=== PATIENT | male | born 1960 | race Caucasian/White ===

== ENCOUNTER 2016-08-05 15:52 | Observation (INO) | payer MEDICARE, OTHER ==
--- NOTE | 2016-08-05 16:43 | ED ---
General Adult HPI - General Chief complaint: Chest Pain Stated complaint: chest pain Time Seen by Provider: 08/05/16 16:23 Source: patient, EMS, RN notes reviewed, old records reviewed Mode of arrival: EMS Limitations: no limitations - History of Present Illness Initial comments: This is a 55-year-old male with a ER for evaluation today. This patient presents for evaluation of chest pain. Patient had the chest pain that began in the shower, help with nitro. Patient has history of heart disease, patient does occasionally take nitro for chest pain. Patient got in his shower today around 1:00 and passed out after having an episode of chest pain with shortness of breath and mild diaphoresis. Patient states the pain did resolve prior to ambulance arriving and he did take a nitro and aspirin. Patient still states he remains without chest pain or shortness of breath, did have a stress test within the last year prior to heart surgery. - Related Data Home Medications Medication Instructions Recorded Confirmed Clopidogrel Bisulfate [Plavix] 75 mg PO DAILY 08/05/16 08/05/16 Escitalopram [Lexapro] 20 mg PO DAILY 08/05/16 08/05/16 Isosorbide Dinitrate 30 mg PO DAILY 08/05/16 08/05/16 QUEtiapine [SEROquel] 50 mg PO DAILY 08/05/16 08/05/16 Ramipril [Altace] 5 mg PO DAILY 08/05/16 08/05/16 Ranolazine [Ranexa] 1,000 mg PO BID 08/05/16 08/05/16 glipiZIDE [Glucotrol] 10 mg PO DAILY 08/05/16 08/05/16 metFORMIN HCL 1,000 mg PO BID 08/05/16 08/05/16 sitaGLIPtin [Januvia] 100 mg PO DAILY 08/05/16 08/05/16 Allergies Allergy/AdvReac Type Severity Reaction Status Date / Time phenytoin [From Dilantin] Allergy SWEATING, Verified 08/05/16 16:16 HOT, METALLIC TASTE, TINGLING Review of Systems ROS Statement: Those systems with pertinent positive or pertinent negative responses have been documented in the HPI. ROS Other: All systems not noted in ROS Statement are negative. Past Medical History Past Medical History: Diabetes Mellitus, Hypertension Additional Past Medical History / Comment(s): 2 stents placed, History of Any Multi-Drug Resistant Organisms: None Reported Additional Past Surgical History / Comment(s): 2 stents placed, varicose vein removal Past Psychological History: Anxiety, Depression Smoking Status: Former smoker Past Alcohol Use History: Occasional Past Drug Use History: Marijuana General Exam Limitations: no limitations General appearance: alert, in no apparent distress Head exam: Present: atraumatic, normocephalic, normal inspection Eye exam: Present: normal appearance, PERRL, EOMI. Absent: scleral icterus, conjunctival injection, periorbital swelling ENT exam: Present: normal exam, mucous membranes moist Neck exam: Present: normal inspection. Absent: tenderness, meningismus, lymphadenopathy Respiratory exam: Present: normal lung sounds bilaterally. Absent: respiratory distress, wheezes, rales, rhonchi, stridor Cardiovascular Exam: Present: regular rate, normal rhythm, normal heart sounds. Absent: systolic murmur, diastolic murmur, rubs, gallop, clicks GI/Abdominal exam: Present: soft, normal bowel sounds. Absent: distended, tenderness, guarding, rebound, rigid Extremities exam: Present: normal inspection, full ROM, normal capillary refill. Absent: tenderness, pedal edema, joint swelling, calf tenderness Back exam: Present: normal inspection Neurological exam: Present: alert, oriented X3, CN II-XII intact Psychiatric exam: Present: normal affect, normal mood Skin exam: Present: warm, dry, intact, normal color. Absent: rash Course Vital Signs 08/05/16 08/05/16 15:58 17:30 Pulse Rate 87 Pulse Rate [ 98 Right Radial] Respiratory 18 Rate Blood Pressure 109/65 O2 Sat by Pulse 99 Oximetry - Reevaluation(s) Reevaluation #1: 08/05/16 18:15 patient is still with chest pain, cruz was helped with nitro Reevaluation #2: 08/05/16 18:15 patient admits to severe depression EKG Findings - EKG Comments: EKG Findings:: EKG shows sinus tachycardia rate 103, CA 150, QRS 80, QTC 453 Medical Decision Making - Lab Data Result diagrams: 08/05/16 16:01 08/05/16 16:01 Lab Results 08/05/16 08/05/16 08/05/16 Range/Units 16:01 16:01 16:01 WBC 5.7 (3.8-10.6) k/uL RBC 4.63 (4.30-5.90) m/uL Hgb 14.7 (13.0-17.5) gm/dL Hct 41.7 (39.0-53.0) % MCV 90.1 (80.0-100.0) fL MCH 31.7 (25.0-35.0) pg MCHC 35.2 (31.0-37.0) g/dL RDW 12.4 (11.5-15.5) % Plt Count 175 (150-450) k/uL Neutrophils % 72 % Lymphocytes % 17 % Monocytes % 6 % Eosinophils % 2 % Basophils % 1 % Neutrophils # 4.1 (1.3-7.7) k/uL Lymphocytes # 1.0 (1.0-4.8) k/uL Monocytes # 0.3 (0-1.0) k/uL Eosinophils # 0.1 (0-0.7) k/uL Basophils # 0.1 (0-0.2) k/uL PT (9.0-12.0) sec INR (<1.1) APTT (22.0-30.0) sec D-Dimer (<0.60) mg/L FEU Sodium 136 L (137-145) mmol/L Potassium 4.8 (3.5-5.1) mmol/L Chloride 101 (98-107) mmol/L Carbon Dioxide 21 L (22-30) mmol/L Anion Gap 14 mmol/L BUN 19 (9-20) mg/dL Creatinine 1.04 (0.66-1.25) mg/dL Est GFR (MDRD) Af Amer >60 (>60 ml/min/1.73 sqM) Est GFR (MDRD) Non-Af >60 (>60 ml/min/1.73 sqM) Glucose 322 H (74-99) mg/dL Calcium 9.4 (8.4-10.2) mg/dL Magnesium 1.2 L (1.6-2.3) mg/dL Total Bilirubin 1.7 H (0.2-1.3) mg/dL AST 26 (17-59) U/L ALT 24 (21-72) U/L Alkaline Phosphatase 22 L (38-126) U/L Total Creatine Kinase 58 (55-170) U/L CK-MB (CK-2) 0.8 (0.0-2.4) ng/mL CK-MB (CK-2) Rel Index 1.4 Troponin I <0.012 (0.000-0.034) ng/mL NT-Pro-B Natriuret Pep pg/mL Total Protein 7.3 (6.3-8.2) g/dL Albumin 4.3 (3.5-5.0) g/dL Lipase 183 (23-300) U/L 08/05/16 08/05/16 Range/Units 16:01 16:01 WBC (3.8-10.6) k/uL RBC (4.30-5.90) m/uL Hgb (13.0-17.5) gm/dL Hct (39.0-53.0) % MCV (80.0-100.0) fL MCH (25.0-35.0) pg MCHC (31.0-37.0) g/dL RDW (11.5-15.5) % Plt Count (150-450) k/uL Neutrophils % % Lymphocytes % % Monocytes % % Eosinophils % % Basophils % % Neutrophils # (1.3-7.7) k/uL Lymphocytes # (1.0-4.8) k/uL Monocytes # (0-1.0) k/uL Eosinophils # (0-0.7) k/uL Basophils # (0-0.2) k/uL PT 11.1 (9.0-12.0) sec INR 1.1 (<1.1) APTT 20.7 L (22.0-30.0) sec D-Dimer 0.53 (<0.60) mg/L FEU Sodium (137-145) mmol/L Potassium (3.5-5.1) mmol/L Chloride (98-107) mmol/L Carbon Dioxide (22-30) mmol/L Anion Gap mmol/L BUN (9-20) mg/dL Creatinine (0.66-1.25) mg/dL Est GFR (MDRD) Af Amer (>60 ml/min/1.73 sqM) Est GFR (MDRD) Non-Af (>60 ml/min/1.73 sqM) Glucose (74-99) mg/dL Calcium (8.4-10.2) mg/dL Magnesium (1.6-2.3) mg/dL Total Bilirubin (0.2-1.3) mg/dL AST (17-59) U/L ALT (21-72) U/L Alkaline Phosphatase (38-126) U/L Total Creatine Kinase (55-170) U/L CK-MB (CK-2) (0.0-2.4) ng/mL CK-MB (CK-2) Rel Index Troponin I (0.000-0.034) ng/mL NT-Pro-B Natriuret Pep 61 pg/mL Total Protein (6.3-8.2) g/dL Albumin (3.5-5.0) g/dL Lipase (23-300) U/L Critical Care Time Critical Care Time: Yes Total Critical Care Time: 31 Disposition Clinical Impression: Chest pain, Depression Disposition: ADMITTED IP TO THIS [facility] Condition: Fair Referrals: Jenna Cuellar DO [Primary Care Provider] - 1-2 days
[2016-08-05 16:49] LABS: Basophils # (A) 0.1 k/uL (0-0.2); Basophils % (A) 1 %; CH 31.3; CHCM 34.9; Eosinophils # (A) 0.1 k/uL (0-0.7); Eosinophils % (A) 2 %; HCT 41.7 % (39.0-53.0); HDW 2.72; HGB 14.7 gm/dL (13.0-17.5); Luc % (Auto) 2; Lymphocytes % (A) 17 %; MCH 31.7 pg (25.0-35.0); MCHC 35.2 g/dL (31.0-37.0); MCV 90.1 fL (80.0-100.0); Mean Platelet Volume 7.9; Monocytes # (A) 0.3 k/uL (0-1.0); Monocytes % (A) 6 %; Neutrophils # (A) 4.1 k/uL (1.3-7.7); Neutrophils % (A) 72 %; RBC 4.63 m/uL (4.30-5.90); RDW 12.4 % (11.5-15.5); WBC 5.7 k/uL (3.8-10.6); WBC (Perox) 5.69
--- NOTE | 2016-08-05 16:55 | XR ---
EXAMINATION TYPE: XR chest 2V DATE OF EXAM: 08/05/2016 4:48 PM COMPARISON: NONE HISTORY: Chest pain today. TECHNIQUE: Frontal and lateral views of the chest are obtained. FINDINGS: There is no focal air space opacity, pleural effusion, or pneumothorax seen. The cardiac silhouette size is within normal limits with atherosclerotic change in the aortic knob. The osseous structures are intact. IMPRESSION: No acute process.
[2016-08-05 16:59] LABS: INR 1.1 (<1.1); Prothrombin Time 11.1 sec (9.0-12.0)
[2016-08-05 17:00] LABS: ALT 24 U/L (21-72); AST 26 U/L (17-59); Alkaline Phosphatase 22 U/L (38-126); Anion Gap 14 mmol/L; Blood Urea Nitrogen 19 mg/dL (9-20); Calcium 9.4 mg/dL (8.4-10.2); Carbon Dioxide 21 mmol/L (22-30); Chloride 101 mmol/L (98-107); Glucose 322 mg/dL (74-99); Magnesium 1.2 mg/dL (1.6-2.3); Non-African American GFR(MDRD) >60 (>60 ml/min/1.73 sqM); Potassium 4.8 mmol/L (3.5-5.1); Sodium 136 mmol/L (137-145); Total Bilirubin 1.7 mg/dL (0.2-1.3); Total Protein 7.3 g/dL (6.3-8.2)
[2016-08-05 17:12] LABS: Partial Thromboplastin Time 20.7 sec (22.0-30.0)
[2016-08-05 17:30] LABS: Creatine Kinase 58 U/L (55-170)
[2016-08-05 17:43] LABS: Creatine Kinase MB 0.8 ng/mL (0.0-2.4); Troponin I <0.012 ng/mL (0.000-0.034)
[2016-08-05] MEDS ORDERED: HEPARIN SODIUM,PORCINE 5,000 UNIT/ML 1 ML VIAL IV PRN (18:13)
[2016-08-05] MEDS ORDERED: ASPIRIN 81 MG CHEW PO STA (18:13)
[2016-08-05] MEDS ORDERED: NITROGLYCERIN SL TABS 0.4 MG TAB SUBLINGUAL PRN (18:13)
[2016-08-05] MEDS ORDERED: MORPHINE SULFATE 4 MG/ML SYRINGE IV PRN (18:13)
[2016-08-05] MEDS ORDERED: HEPARIN SODIUM,PORCINE 5,000 UNIT/ML 1 ML VIAL IV ONE (18:13)
[2016-08-05] MEDS ORDERED: MAGNESIUM OXIDE 400 MG TAB PO STA (18:15)
[2016-08-05] MEDS ORDERED: HEPARIN SODIUM,PORCINE/D5W PMX 25,000 UNIT in DEXTROSE/WATER 1 500ML.BAG IV SCH (18:15)
[2016-08-05] MEDS: SODIUM CHLORIDE 0.9% 1,000 ML IV SCH (18:37)
[2016-08-05] MEDS: MAGNESIUM SULFATE-D5W PMX 1 GM in DEXTROSE/WATER 1 100ML.BAG IVPB SCH ×4 (18:38→22:54)
[2016-08-05 19:59] LABS: Creatine Kinase MB 0.9 ng/mL (0.0-2.4); Troponin I 0.024 ng/mL (0.000-0.034)
[2016-08-06 00:52] VITALS: BMI 27.1
[2016-08-06 00:57] LABS: Glucose,Whole Blood 163 mg/dL (75-99)
[2016-08-06 01:29] LABS: Creatine Kinase MB 1.2 ng/mL (0.0-2.4); Troponin I 0.028 ng/mL (0.000-0.034)
[2016-08-06] MEDS: SODIUM CHLORIDE 0.9% 1,000 ML IV SCH ×2 (05:47→19:00)
[2016-08-06 06:09] VITALS: RESP 16
[2016-08-06 08:17] VITALS: TEMP 98
[2016-08-06] MEDS ORDERED: ASPIRIN 325 MG TAB PO SCH (09:00)
[2016-08-06] MEDS ORDERED: ATORVASTATIN 80 MG TAB PO SCH (09:00)
[2016-08-06] MEDS ORDERED: METOPROLOL TARTRATE 25 MG TAB PO SCH (09:00)
--- NOTE | 2016-08-06 09:46 | CONS ---
DATE OF CONSULTATION: This is a 55-year-old gentleman who is very sketchy in terms of his history, how he provides it, but I spent a lot of time talking to this patient and understanding exactly what happened. Apparently he has CAD and apparently in 2004 and 2006 or so he had stenting performed. Obtuse marginal stent was a bare metal stent, in a third obtuse marginal and diagonal he had another stent performed and this was also in 2005 apparently and this was a drug-eluting stent. They were placed in [facility] and [facility]. About 2 weeks ago he had a stress test with his merchandising assistant Dr. Rojas in [place] and he was told it was normal. He has underlying ADHD and some depression. Yesterday, he took a shower, came out and then he had a very sharp pain in the chest almost like vice that lasted a few seconds, took his breath away and this lasted for a few minutes. He felt very uncomfortable and then the pain resolved. His troponins are normal. He is resting comfortably. Denies any chest pain, but he also has some underlying depression. He has type 2 diabetes, hypertension, hyperlipidemia, and CAD, which is diffuse, CAD and has been on multiple medications including ranolazine. At the time of my evaluation, he is resting comfortably without symptoms. His troponin levels are unremarkable. PAST MEDICAL HISTORY: 1. CAD with multivessel PCI. 2. Diabetes. 3. Hypertension. 4. ADHD. 5. Depression and anxiety. Medications at home include Seroquel, glipizide, Januvia, Ismo, Plavix, Altace, metformin, Ranexa. ALLERGIES: DILANTIN. On examination, blood pressure is 130/70, pulse rate 68 per minute, regular. HEENT: Unremarkable. Fundus was not examined by me. Neck is supple. No JVD. I do not hear a carotid bruit. There is no thyromegaly. Heart exam reveals S1 and S2 heard normally without a rub, murmur or gallop. Lungs are clear. ABDOMEN: Soft, nontender. Lower extremities reveal normal pulses. No edema. Central nervous system is normal. EKG revealed sinus mechanism. No acute changes. IMPRESSION: 1. Atypical chest pain in a patient with a recent negative stress test, but has coronary artery disease, which is apparently diffuse coronary artery disease. 2. Hypertension. 3. Type 2 diabetes mellitus. 4. History of hyperlipidemia. 5. History of depression and anxiety. RECOMMENDATIONS: I am recommending that we will obtain the stress test that was performed 2 weeks ago. I am recommending that we discontinue IV heparin, increase activity, and he can be discharged and follow up with his merchandising assistant. I will add a beta paulino to his regimen and I have added metoprolol tartrate 25 mg b.i.d. and I did discuss this and explained to the patient. Thank you very much for the consult.
[2016-08-06 11:05] LABS: Magnesium 1.9 mg/dL (1.6-2.3)
[2016-08-06 12:22] LABS: Glucose,Whole Blood 218 mg/dL (75-99)
[2016-08-06 13:25] LABS: Hemoglobin A1C 9.2 % (4.2-6.1)
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
[2016-08-06 16:34] VITALS: BP 169/85; PULSE 78
== END 2016-08-06 17:12 ==
LOC: EC 15:52 → 3OBS 18:14
PROVIDERS: ADMIT Hospitalist; ATTEND Hospitalist
DX: I25.110 Atherosclerotic heart disease of native coronary artery with unstable angina pectoris (principal); I10 Essential (primary) hypertension; E11.65 Type 2 diabetes mellitus with hyperglycemia; E78.5 Hyperlipidemia, unspecified; F41.9 Anxiety disorder, unspecified; F32.9 Major depressive disorder, single episode, unspecified; Z79.899 Other long term (current) drug therapy; Z79.02 Long term (current) use of antithrombotics/antiplatelets; Z79.84 Long term (current) use of oral hypoglycemic drugs; Z88.8 Allergy status to other drugs, medicaments and biological substances; Z87.891 Personal history of nicotine dependence; Z95.5 Presence of coronary angioplasty implant and graft
CPT/HCPCS: 96366 ×2; 96367; 96376; 96368; 96365; 99291; 36415; 93005; 85379; 83880; 80061; 80053; 83036; 82550 ×2; 82553 ×2; 83690; 83735 ×2; 84484 ×2; 85025; 85049; 85610; 85730 ×2; 71020; G0378 ×2; J1644 ×3; J3475

== ENCOUNTER 2016-08-06 15:56 | Inpatient (IN) | payer MEDICARE, MEDICAID ==
[2016-08-06] MEDS ORDERED: MAGNESIUM HYDROXIDE 2,400 MG/10 ML CUP PO PRN (16:03)
[2016-08-06] MEDS ORDERED: ZIPRASIDONE 20 MG VIAL IM PRN (16:03)
[2016-08-06 17:31] LABS: Glucose,Whole Blood 295 mg/dL (75-99)
[2016-08-06 19:57] LABS: Glucose,Whole Blood 293 mg/dL (75-99)
[2016-08-06] MEDS: metFORMIN 500 MG TAB PO SCH (20:05)
[2016-08-06] MEDS: RANOLAZINE 500 MG TAB.ER.12H PO SCH (20:05)
[2016-08-06] MEDS: METOPROLOL TARTRATE 25 MG TAB PO SCH (20:05)
[2016-08-06] MEDS ORDERED: INSULIN LISPRO (humaLOG) 300 UNIT/3 ML VIAL SQ ONE (20:16)
[2016-08-06] MEDS: INSULIN LISPRO (humaLOG) 300 UNIT/3 ML VIAL SQ SCH (20:21)
[2016-08-06] MEDS: LORazepam 1 MG TAB PO PRN (22:19)
[2016-08-07 06:12] LABS: Glucose,Whole Blood 223 mg/dL (75-99)
[2016-08-07] MEDS: INSULIN LISPRO (humaLOG) 300 UNIT/3 ML VIAL SQ SCH ×4 (07:57→20:23)
[2016-08-07] MEDS: ISOSORBIDE MONONITRATE ER 30 MG TAB.ER.24H PO SCH (08:00)
[2016-08-07] MEDS: CLOPIDOGREL 75 MG TAB PO SCH (08:00)
[2016-08-07] MEDS: ESCITALOPRAM 20 MG TAB PO SCH (08:00)
[2016-08-07] MEDS: ATORVASTATIN 40 MG TAB PO SCH (08:00)
[2016-08-07] MEDS: METOPROLOL TARTRATE 25 MG TAB PO SCH ×2 (08:01→20:23)
[2016-08-07] MEDS: metFORMIN 500 MG TAB PO SCH ×2 (08:01→20:22)
[2016-08-07] MEDS: RANOLAZINE 500 MG TAB.ER.12H PO SCH ×2 (08:01→20:22)
[2016-08-07] MEDS: QUEtiapine 50 MG TAB PO SCH (08:01)
[2016-08-07] MEDS ORDERED: LISINOPRIL 20 MG TAB PO SCH (09:00)
[2016-08-07] MEDS ORDERED: LINAGLIPTIN 5 MG TABLET PO SCH (09:00)
[2016-08-07] MEDS ORDERED: glipiZIDE 10 MG TAB PO SCH (09:00)
[2016-08-07 12:24] LABS: Glucose,Whole Blood 216 mg/dL (75-99)
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
[2016-08-07] MEDS: INSULIN DETEMIR 100 UNIT/ML 10 ML VIAL SQ SCH (14:31)
[2016-08-07 17:15] LABS: Glucose,Whole Blood 293 mg/dL (75-99)
[2016-08-07] MEDS ORDERED: LISINOPRIL 20 MG TAB PO ONE (19:30)
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
[2016-08-07 20:02] LABS: Glucose,Whole Blood 310 mg/dL (75-99)
[2016-08-07] MEDS: LORazepam 1 MG TAB PO PRN (22:37)
[2016-08-07] MEDS: ACETAMINOPHEN TAB 325 MG TAB PO PRN (23:53)
[2016-08-08 06:22] LABS: Glucose,Whole Blood 269 mg/dL (75-99)
[2016-08-08] MEDS: INSULIN DETEMIR 100 UNIT/ML 10 ML VIAL SQ SCH (07:52)
[2016-08-08] MEDS: INSULIN LISPRO (humaLOG) 300 UNIT/3 ML VIAL SQ SCH ×5 (07:53→21:41)
[2016-08-08] MEDS: LISINOPRIL 20 MG TAB PO SCH (08:47)
[2016-08-08] MEDS: ESCITALOPRAM 20 MG TAB PO SCH (08:47)
[2016-08-08] MEDS: CLOPIDOGREL 75 MG TAB PO SCH (08:48)
[2016-08-08] MEDS: ATORVASTATIN 40 MG TAB PO SCH (08:48)
[2016-08-08] MEDS: QUEtiapine 50 MG TAB PO SCH (08:48)
[2016-08-08] MEDS: metFORMIN 500 MG TAB PO SCH ×2 (08:49→21:44)
[2016-08-08] MEDS: RANOLAZINE 500 MG TAB.ER.12H PO SCH ×2 (08:49→21:44)
[2016-08-08] MEDS: ISOSORBIDE MONONITRATE ER 30 MG TAB.ER.24H PO SCH (08:49)
[2016-08-08] MEDS: METOPROLOL TARTRATE 25 MG TAB PO SCH ×2 (08:50→21:44)
--- NOTE | 2016-08-08 12:29 | P.PN ---
Progress Note - Text Interval history: Patient is seen in cross coverage today for Dr. Sawyer. He seems to relay that his mood is doing a little better today. Says he slept 8 hours last night. He talks about long history of ADHD which has had an impact on his functioning. He does make reference to having requested a different doctor. He does not see anybody currently as an outpatient it sounds. He makes reference to having been transferred from the medical floor. Mental status exam: He is alert and cooperative with the interview. His affect overall is restricted. His mood he seems to describe is a little better. He denies any thoughts of harm to self or others. He denies any hallucinations. He is not showing any evidence of active psychosis. There is no agitation. Plan: We'll maintain current psychotropic medications which are Lexapro and Seroquel. We'll monitor for any medication side effects. We'll continue to cover this patient for Dr. Sawyer through the weekend.
[2016-08-08 12:31] LABS: Glucose,Whole Blood 277 mg/dL (75-99)
[2016-08-08] MEDS ORDERED: INSULIN DETEMIR 100 UNIT/ML 10 ML VIAL SQ SCH (15:06)
[2016-08-08 17:40] LABS: Glucose,Whole Blood 191 mg/dL (75-99)
[2016-08-08 20:11] LABS: Glucose,Whole Blood 258 mg/dL (75-99)
[2016-08-08] MEDS: LORazepam 1 MG TAB PO PRN (22:06)
[2016-08-08] MEDS: MAG HYDROX/AL HYDROX/SIMETH 30 ML CUP PO PRN (22:42)
[2016-08-09 06:58] LABS: Glucose,Whole Blood 236 mg/dL (75-99)
[2016-08-09] MEDS: INSULIN LISPRO (humaLOG) 300 UNIT/3 ML VIAL SQ SCH ×7 (08:10→21:03)
[2016-08-09] MEDS: QUEtiapine 50 MG TAB PO SCH (08:13)
[2016-08-09] MEDS: CLOPIDOGREL 75 MG TAB PO SCH (08:13)
[2016-08-09] MEDS: metFORMIN 500 MG TAB PO SCH ×2 (08:13→21:06)
[2016-08-09] MEDS: ATORVASTATIN 40 MG TAB PO SCH (08:13)
[2016-08-09] MEDS: METOPROLOL TARTRATE 25 MG TAB PO SCH ×2 (08:13→19:48)
[2016-08-09] MEDS: ESCITALOPRAM 20 MG TAB PO SCH (08:13)
[2016-08-09] MEDS: LISINOPRIL 20 MG TAB PO SCH (08:13)
[2016-08-09] MEDS: RANOLAZINE 500 MG TAB.ER.12H PO SCH ×2 (08:13→19:48)
[2016-08-09] MEDS: ISOSORBIDE MONONITRATE ER 30 MG TAB.ER.24H PO SCH (08:13)
--- NOTE | 2016-08-09 11:39 | P.PN ---
Progress Note - Text Interval history: Patient is seen in cross coverage for Dr. Sawyer. He relates that his sleep was a little interrupted last night. He does not seem to voice any adverse psychotropic medication side effects. He makes reference to feeling like he needs something for sleep. We discussed that as Seroquel as currently ordered as daytime and we discussed moving this to bedtime. Mental status exam: He is alert and cooperative with the interview. Speech is fluent, not rapid or pressured. He describes his mood as "a little down, but level." He denies any thoughts of harm to self or others. He does not show any active evidence of psychosis or agitation. Plan: We'll change Seroquel scheduling to bedtime. We'll continue to monitor his mood and for any medication side effects. Dr. Sawyer to resume care this patient starting tomorrow.
[2016-08-09 12:21] LABS: Glucose,Whole Blood 275 mg/dL (75-99)
[2016-08-09 17:35] LABS: Glucose,Whole Blood 321 mg/dL (75-99)
[2016-08-09] MEDS ORDERED: INSULIN DETEMIR 100 UNIT/ML 10 ML VIAL SQ STA (18:29)
[2016-08-09] MEDS ORDERED: INSULIN LISPRO (humaLOG) 300 UNIT/3 ML VIAL SQ STA (18:34)
[2016-08-09 19:53] LABS: Glucose,Whole Blood 320 mg/dL (75-99)
[2016-08-09] MEDS: LORazepam 1 MG TAB PO PRN (22:27)
[2016-08-10 06:22] LABS: Glucose,Whole Blood 160 mg/dL (75-99)
[2016-08-10] MEDS: INSULIN DETEMIR 100 UNIT/ML 10 ML VIAL SQ SCH (07:56)
[2016-08-10] MEDS: INSULIN LISPRO (humaLOG) 300 UNIT/3 ML VIAL SQ SCH ×7 (08:00→20:22)
[2016-08-10] MEDS: LISINOPRIL 20 MG TAB PO SCH (08:04)
[2016-08-10] MEDS: metFORMIN 500 MG TAB PO SCH ×2 (08:04→20:23)
[2016-08-10] MEDS: CLOPIDOGREL 75 MG TAB PO SCH (08:04)
[2016-08-10] MEDS: ISOSORBIDE MONONITRATE ER 30 MG TAB.ER.24H PO SCH (08:04)
[2016-08-10] MEDS: ESCITALOPRAM 20 MG TAB PO SCH (08:04)
[2016-08-10] MEDS: ATORVASTATIN 40 MG TAB PO SCH (08:04)
[2016-08-10] MEDS: RANOLAZINE 500 MG TAB.ER.12H PO SCH ×2 (08:05→20:23)
[2016-08-10] MEDS: METOPROLOL TARTRATE 25 MG TAB PO SCH ×2 (08:05→20:23)
[2016-08-10 12:23] LABS: Glucose,Whole Blood 216 mg/dL (75-99)
--- NOTE | 2016-08-10 12:23 | PN ---
DATE OF SERVICE: 08/10/2016 CHIEF COMPLAINT : The patient was admitted due to depression, feelings of hopelessness and inability to function. He asserted that he has ADHD as a primary problem. He has a significant history of use of marijuana and alcohol. INTERVAL HISTORY: Patient has been doing fair. He seemed to have a quiet course over the weekend. Today, he says that said nothing changed through the weekend. He was unclear as to whether he talked to the covering doctor for the weekend in regards to his concerns about treatment. He has a focus on getting the treatment for ADHD, in spite of the fact that he presents with significant depression. He seemed to be somewhat confused about things. At one point, he said that he thought he talked to me over the weekend. He has focus on talking with Dr. Lam on Wednesday. I reviewed some medication options for him. We discussed the possibility of using Tofranil as an antidepressant, which also has usefulness for ADHD. 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 I discussed his Seroquel. I discussed the issue that his blood sugars run high and that at this point he is on a relatively low dose of Seroquel that by his presentation is not showing effectiveness. We talked about either titrating up on Seroquel to see if he gets benefit from the medicine or getting him off it altogether to reduce risks relating to his elevated blood sugars. He declined to do either. I also discussed alternatives to Seroquel which might be effective at augmenting treatment for mood disorder. Patient had made indications to the staff on the weekend that at home he would not use insulin in spite of the fact that his blood sugars are running high with his being on metformin. Patient reports that he uses magnesium and chromium which he does on his own and says that they have efficacy for helping his diabetes. He sees Dr. Cuellar, but notes that Dr. Cuellar has had not prescribed those supplements. The patient slept fair. He says that he chronically does not sleep well and did not sleep well on the weekend either. His mood is down. He is quite reserved in his manner. He has not had change in his general health. I had ordered a urinalysis and urine drug screen though it is not clear that a collection was made. MENTAL STATUS: Patient was dressed in hospital garb. His street clothes were being washed. He had poor eye contact. Psychomotor activity was slow. Speech was monotone. He answered questions with brief responses. His thoughts were clear. His affect was flat. Mood depressed. He had a disgruntled manner. ASSESSMENT: I will continue the current diagnosis and treatment plan. I will continue psychotropic medications the same. Patient asserts that he will review his concerns with Dr. Lam with the primary concern that he does not trust this doctor and prefers to see another. I reviewed with him options for outpatient followup though his only interest at this point is revealing concerns with Dr. Lam. MARVIN
[2016-08-10 16:30] LABS: Appearance,Urine Clear (Clear); Bilirubin,Urine Negative (Negative); Glucose,Urine (UA) 4+ (Negative); Ketones,Urine Negative (Negative); Leukocyte Esterase,Urine Negative (Negative); Nitrite,Urine Negative (Negative); Protein,Urine Negative (Negative); UA Billing (MACRO vs. MICRO) CHEM; Urobilinogen,Urine <2.0 mg/dL (<2.0)
[2016-08-10 16:49] LABS: Glucose,Whole Blood 237 mg/dL (75-99)
[2016-08-10] MEDS: MAG HYDROX/AL HYDROX/SIMETH 30 ML CUP PO PRN (17:51)
[2016-08-10 19:49] LABS: Glucose,Whole Blood 264 mg/dL (75-99)
[2016-08-10] MEDS ORDERED: QUEtiapine 50 MG TAB PO SCH (21:00)
[2016-08-10] MEDS: LORazepam 1 MG TAB PO PRN (21:34)
[2016-08-11 07:01] LABS: Glucose,Whole Blood 170 mg/dL (75-99)
[2016-08-11] MEDS: INSULIN DETEMIR 100 UNIT/ML 10 ML VIAL SQ SCH (08:48)
[2016-08-11] MEDS: INSULIN LISPRO (humaLOG) 300 UNIT/3 ML VIAL SQ SCH ×7 (08:49→20:23)
[2016-08-11] MEDS: CLOPIDOGREL 75 MG TAB PO SCH (08:51)
[2016-08-11] MEDS: ATORVASTATIN 40 MG TAB PO SCH (08:51)
[2016-08-11] MEDS: METOPROLOL TARTRATE 25 MG TAB PO SCH ×2 (08:52→20:20)
[2016-08-11] MEDS: metFORMIN 500 MG TAB PO SCH ×2 (08:52→20:19)
[2016-08-11] MEDS: LISINOPRIL 20 MG TAB PO SCH (08:52)
[2016-08-11] MEDS: ESCITALOPRAM 20 MG TAB PO SCH (08:52)
[2016-08-11] MEDS: ISOSORBIDE MONONITRATE ER 30 MG TAB.ER.24H PO SCH (08:52)
[2016-08-11] MEDS: RANOLAZINE 500 MG TAB.ER.12H PO SCH ×2 (08:53→20:20)
[2016-08-11] MEDS ORDERED: IMIPRAMINE 25 MG TAB PO STA (11:31)
[2016-08-11 12:09] LABS: Glucose,Whole Blood 324 mg/dL (75-99)
--- NOTE | 2016-08-11 14:28 | PN ---
DATE OF SERVICE: 08/11/2016 CHIEF COMPLAINT: The patient was admitted due to depression, feelings of hopelessness and inability to function. He asserted that he has ADHD as a primary problem. He had a significant history of use of marijuana and alcohol. INTERVAL HISTORY: Patient has been doing fair. He continues to be withdrawn. He does not attend groups. He will interact a little with others. He is quite hesitant to engage in social interactions. He does have a surgery coming up on for hernia repair and is hopeful that he can be discharged. He noted today that his Plavix needs to be stopped prior to surgery, so will be discontinued today. He says he is willing to try alternative medications as he acknowledges that his current medication regimen has not worked for him for mood or other problems. He continues to have some problems sleeping though says that Ativan helps with that. He is comfortable with the idea of stopping both Lexapro and Seroquel, which he had been on previously. We reviewed issues with starting Tofranil which he agreed to. He has not had change in his general health. He tolerates his psychotropic medications. MENTAL STATUS: Patient sat with fair eye contact. Psychomotor activity was slow. Speech was monotone. He answered questions with direct responses. His thoughts were clear. He seemed a little calmer today and a little less defensive and anxious about his situation. He had some blunting of affect, but less than previous days. His mood was dysphoric. He was somewhat distressed. ASSESSMENT: I will continue the current diagnosis and general treatment plan. I will discontinue Lexapro and Seroquel. I will start Tofranil, given that he is hopeful to be discharged tomorrow to prepare for surgery. I will try to titrate up his Tofranil on a somewhat assertive schedule. He will take 25 mg this afternoon. If he does not have any problems with it, will give him another 25 mg at bedtime. If he tolerates that, we could look at possibly discharging him on 75 mg a day. I will get an EKG tomorrow afternoon to assess, particularly for any acute TC prolongation. We met with the neonatal social worker to review followup plans. The patient does say that he would be willing to be seen by another primary care physician at he has not been comfortable with the doctor he has been seeing. We discussed that his medication could likely be managed by primary care physician or psychiatrist, neonatal social worker will be looking to set up followup plans in his area where he lives. We will aim to discharge the patient tomorrow.
[2016-08-11] MEDS: MAG HYDROX/AL HYDROX/SIMETH 30 ML CUP PO PRN (17:04)
[2016-08-11 17:07] LABS: Glucose,Whole Blood 181 mg/dL (75-99)
[2016-08-11 20:11] LABS: Glucose,Whole Blood 147 mg/dL (75-99)
[2016-08-11] MEDS ORDERED: IMIPRAMINE 25 MG TAB PO SCH (21:00)
[2016-08-11] MEDS: LORazepam 1 MG TAB PO SCH (21:41)
[2016-08-11] MEDS: ACETAMINOPHEN TAB 325 MG TAB PO PRN (23:11)
[2016-08-12 06:41] LABS: Glucose,Whole Blood 104 mg/dL (75-99)
[2016-08-12] MEDS: INSULIN LISPRO (humaLOG) 300 UNIT/3 ML VIAL SQ SCH ×8 (08:02→20:56)
[2016-08-12] MEDS: INSULIN DETEMIR 100 UNIT/ML 10 ML VIAL SQ SCH (08:03)
[2016-08-12] MEDS: ATORVASTATIN 40 MG TAB PO SCH (08:07)
[2016-08-12] MEDS: ISOSORBIDE MONONITRATE ER 30 MG TAB.ER.24H PO SCH (08:07)
[2016-08-12] MEDS: LISINOPRIL 20 MG TAB PO SCH (08:07)
[2016-08-12] MEDS: metFORMIN 500 MG TAB PO SCH ×2 (08:07→20:58)
[2016-08-12] MEDS: RANOLAZINE 500 MG TAB.ER.12H PO SCH ×2 (08:07→20:59)
[2016-08-12] MEDS: METOPROLOL TARTRATE 25 MG TAB PO SCH ×2 (08:07→20:58)
[2016-08-12 09:33] LABS: Glucose,Whole Blood 198 mg/dL (75-99)
[2016-08-12 12:08] LABS: Glucose,Whole Blood 151 mg/dL (75-99)
[2016-08-12] MEDS: ACETAMINOPHEN TAB 325 MG TAB PO PRN (16:22)
[2016-08-12 17:03] LABS: Glucose,Whole Blood 158 mg/dL (75-99)
--- NOTE | 2016-08-12 18:17 | PN ---
DATE OF SERVICE: 08/12/2016 CHIEF COMPLAINT: The patient was admitted due to depression, feelings of hopelessness and inability to function. He asserted that he has ADHD as a primary problem. He has a history of use of marijuana and alcohol. INTERVAL HISTORY: Patient has been doing fair. He had a quiet evening last night. He slept fair. Today he has been up and about. It is noteworthy that yesterday and the day before he started attending groups, though he clearly had reactions of being distressed in groups. In some of the groups, he would walk out in an angry manner. Today he has done better. He has attended groups and, though he does not participate a lot, he has been calmer and a little more tolerant of the social situation. He says that he is aggravated today because the surgery he had set up for tomorrow for hernia repair was canceled. He said that somehow information had gotten to his surgeon that he was admitted due to a heart attack for this admission, which is not the case. He was upset in part because he had to do a lot of work to get prepared for the surgery and it took him 3 months to get the appointment. He has not had any problems with the start of Tofranil. He is willing to go up on the medication. He has not had change in his general health. He tolerates his psychotropic medications. MENTAL STATUS: Patient had fair eye contact. Psychomotor activity was slow. Speech was monotone. He answered questions with brief responses. His thoughts were clear. He was spontaneous. He was not really interactive. His affect was flat, mood depressed. He was significantly distressed. ASSESSMENT: I will continue the current diagnosis and treatment plan. Tonight the patient will go up to 75 mg on Tofranil; tomorrow will go up to 100 mg on Tofranil. I offered the patient the option of starting a second medication to help augment his antidepressant. He declined to do that, saying he is on too much medicine already and he wants to keep his treatment simplified, which was appropriate. We discussed the time length for response to the medication and that he needed to understand it may take a few weeks or more to begin seeing some response with the initiation of Tofranil. It is noted that I wrote a note to his physician, Dr. Sammy M.D., and faxed the note with the cardiology consult to clarify issues relating to this admission and that there are no cardiac issues that would interfere with surgery. I advised the patient to contact the doctor's office later today to see what options are available for his surgery. We will continue to focus on stabilization and discharge planning.
[2016-08-12 19:56] LABS: Glucose,Whole Blood 241 mg/dL (75-99)
[2016-08-12] MEDS: LORazepam 1 MG TAB PO SCH (20:58)
[2016-08-12] MEDS ORDERED: IMIPRAMINE 25 MG TAB PO SCH ×2 (21:00)
[2016-08-13 06:05] LABS: Glucose,Whole Blood 143 mg/dL (75-99)
[2016-08-13] MEDS: INSULIN LISPRO (humaLOG) 300 UNIT/3 ML VIAL SQ SCH ×7 (07:48→21:31)
[2016-08-13] MEDS: INSULIN DETEMIR 100 UNIT/ML 10 ML VIAL SQ SCH (07:52)
[2016-08-13] MEDS: metFORMIN 500 MG TAB PO SCH ×2 (08:45→21:29)
[2016-08-13] MEDS: ISOSORBIDE MONONITRATE ER 30 MG TAB.ER.24H PO SCH (08:45)
[2016-08-13] MEDS: METOPROLOL TARTRATE 25 MG TAB PO SCH ×2 (08:45→21:29)
[2016-08-13] MEDS: RANOLAZINE 500 MG TAB.ER.12H PO SCH ×2 (08:45→21:29)
[2016-08-13] MEDS: ATORVASTATIN 40 MG TAB PO SCH (08:45)
[2016-08-13] MEDS: LISINOPRIL 20 MG TAB PO SCH (08:45)
[2016-08-13 12:58] LABS: Glucose,Whole Blood 247 mg/dL (75-99)
--- NOTE | 2016-08-13 15:51 | PN ---
DATE OF SERVICE: 08/13/2016 CHIEF COMPLAINT: The patient was admitted due to depression, feelings of hopelessness and inability to function. He asserted that he has ADHD as a primary problem. He has a history of use of marijuana and alcohol. INTERVAL HISTORY: Patient has been doing fair. He had a quiet evening last night. He said he slept better than he has been. He notes that he went to bed about 10:30 and woke up about 1, which has been his routine. After about an hour and a half he got back to sleep and slept through the night. Today he has been up and about. He attends groups. It is noted that he has been staying through the full groups. Sometimes he may have some behavior that is inappropriate, though for the most part he appears to be managing better in the groups than he has been. He says that his mood is somewhat improved. His only complaint today is some pain in his feet from wearing the slippers that are required. He has a better outlook. He made contact with Dr. Christianson's office and has tentative arrangement for surgery a week from today. He is hopeful that he can be discharged by Wednesday so that he can follow through with that. He says that he thinks his mood has been improving. He has not had problems with the start of Tofranil. He has not had change in his general health. MENTAL STATUS: Patient sat without restlessness. He had good eye contact. Psychomotor activity was a little slow. Speech was somewhat monotone. He answered questions with direct responses. His thoughts were clear. He was somewhat more spontaneous than he has been. His affect was a little blunted. His mood was quiet though not significantly down or depressed. He did not appear to be distressed. ASSESSMENT: I will continue the current diagnosis and treatment plan. I will increase Tofranil up to 100 mg a day at bedtime. We will continue to focus on stabilization and discharge planning. We will aim to discharge the patient on Wednesday. I will order an EKG for Wednesday to assess for any QTc prolongation, which is a potential side effect of Tofranil, particularly in combination with Ranexa.
[2016-08-13] MEDS: MAG HYDROX/AL HYDROX/SIMETH 30 ML CUP PO PRN (16:20)
[2016-08-13 17:46] LABS: Glucose,Whole Blood 173 mg/dL (75-99)
[2016-08-13 19:56] LABS: Glucose,Whole Blood 193 mg/dL (75-99)
[2016-08-13] MEDS: IMIPRAMINE 25 MG TAB PO SCH (21:28)
[2016-08-13] MEDS: LORazepam 1 MG TAB PO SCH (21:29)
[2016-08-14 07:06] LABS: Glucose,Whole Blood 177 mg/dL (75-99)
[2016-08-14] MEDS: ISOSORBIDE MONONITRATE ER 30 MG TAB.ER.24H PO SCH (08:30)
[2016-08-14] MEDS: ATORVASTATIN 40 MG TAB PO SCH (08:30)
[2016-08-14] MEDS: metFORMIN 500 MG TAB PO SCH ×2 (08:30→21:01)
[2016-08-14] MEDS: RANOLAZINE 500 MG TAB.ER.12H PO SCH ×2 (08:31→21:01)
[2016-08-14] MEDS: METOPROLOL TARTRATE 25 MG TAB PO SCH ×2 (08:31→21:01)
[2016-08-14] MEDS: INSULIN LISPRO (humaLOG) 300 UNIT/3 ML VIAL SQ SCH ×7 (08:31→21:07)
[2016-08-14] MEDS: INSULIN DETEMIR 100 UNIT/ML 10 ML VIAL SQ SCH (08:32)
[2016-08-14] MEDS: LISINOPRIL 20 MG TAB PO SCH (09:29)
--- NOTE | 2016-08-14 11:22 | PN ---
DATE OF SERVICE: 08/14/2016 CHIEF COMPLAINT: Patient was admitted due to depression, feelings of hopelessness and inability to function. He asserted that he has ADHD as a primary problem. He has a history of use of marijuana and alcohol. INTERVAL HISTORY: Patient has been doing fair. He had a quiet evening last night. He said he did not sleep too well. He was up until about 2 in the morning. Once he got to sleep, he woke a few times. He feels tired this morning. He has been attending groups. He has difficulty in the groups relating to others, though it is noted that he is able to stay the whole time in groups. His comments have been less negative when he does speak. He gets out around the unit. He will interact some with others. Today he says that he is feeling a little strange in his body. He says he cannot really define, though feels a little "off" physically, though he cannot put it in words. He has been making plans towards discharge. 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 He has been able to research some possible opportunities for that. He also is looking towards moving to a community that would offer more for him socially. He feels quite isolated where he is at. He also says that a lot of people around him drink significantly, which is not a good situation for him. He continues to be somewhat down in his mood, though he does seem to be making small steps forward. He has not had change in his general health. He tolerates his psychotropic medications. MENTAL STATUS: Patient had fair eye contact. Psychomotor activity was slow. Speech was monotone. He answered questions with brief responses. His thoughts were clear. He was somewhat spontaneous and interactive. His affect was blunted. His mood reserved. He did not seem to be significantly distressed. ASSESSMENT: I will continue current diagnosis and treatment plan. Will continue psychotropic medications the same. I suspect some of the physical feelings he is having may relate to initiation of Tofranil. Will continue him on 100 mg a day. I reviewed options towards discharge. At this point, I would aim to discharge the patient over the next few days.
[2016-08-14 13:06] LABS: Glucose,Whole Blood 192 mg/dL (75-99)
[2016-08-14 17:26] LABS: Glucose,Whole Blood 143 mg/dL (75-99)
[2016-08-14 20:10] LABS: Glucose,Whole Blood 195 mg/dL (75-99)
[2016-08-14] MEDS: IMIPRAMINE 25 MG TAB PO SCH (21:00)
[2016-08-14] MEDS: LORazepam 1 MG TAB PO SCH (21:01)
[2016-08-14] MEDS: MAG HYDROX/AL HYDROX/SIMETH 30 ML CUP PO PRN (23:28)
[2016-08-15 06:42] VITALS: TEMP 97.8
[2016-08-15 07:18] LABS: Glucose,Whole Blood 140 mg/dL (75-99)
[2016-08-15] MEDS: ATORVASTATIN 40 MG TAB PO SCH (08:02)
[2016-08-15] MEDS: ISOSORBIDE MONONITRATE ER 30 MG TAB.ER.24H PO SCH (08:02)
[2016-08-15] MEDS: LISINOPRIL 20 MG TAB PO SCH (08:03)
[2016-08-15] MEDS: metFORMIN 500 MG TAB PO SCH ×2 (08:03→20:56)
[2016-08-15] MEDS: METOPROLOL TARTRATE 25 MG TAB PO SCH ×2 (08:03→20:56)
[2016-08-15] MEDS: RANOLAZINE 500 MG TAB.ER.12H PO SCH ×2 (08:03→20:57)
[2016-08-15] MEDS: INSULIN DETEMIR 100 UNIT/ML 10 ML VIAL SQ SCH (08:04)
[2016-08-15] MEDS: INSULIN LISPRO (humaLOG) 300 UNIT/3 ML VIAL SQ SCH ×7 (08:05→21:01)
[2016-08-15 12:30] LABS: Glucose,Whole Blood 149 mg/dL (75-99)
[2016-08-15 17:51] LABS: Glucose,Whole Blood 137 mg/dL (75-99)
[2016-08-15 20:14] LABS: Glucose,Whole Blood 135 mg/dL (75-99)
[2016-08-15] MEDS: IMIPRAMINE 25 MG TAB PO SCH (20:56)
[2016-08-15] MEDS: LORazepam 1 MG TAB PO SCH (20:57)
[2016-08-16 06:12] LABS: Glucose,Whole Blood 147 mg/dL (75-99)
[2016-08-16] MEDS: INSULIN LISPRO (humaLOG) 300 UNIT/3 ML VIAL SQ SCH ×7 (08:15→20:51)
[2016-08-16] MEDS: ISOSORBIDE MONONITRATE ER 30 MG TAB.ER.24H PO SCH (08:52)
[2016-08-16] MEDS: METOPROLOL TARTRATE 25 MG TAB PO SCH ×2 (08:52→20:50)
[2016-08-16] MEDS: metFORMIN 500 MG TAB PO SCH ×2 (08:52→20:49)
[2016-08-16] MEDS: ATORVASTATIN 40 MG TAB PO SCH (08:52)
[2016-08-16] MEDS: LISINOPRIL 20 MG TAB PO SCH (08:52)
[2016-08-16] MEDS: RANOLAZINE 500 MG TAB.ER.12H PO SCH ×2 (08:53→20:48)
[2016-08-16] MEDS: INSULIN DETEMIR 100 UNIT/ML 10 ML VIAL SQ SCH (08:55)
[2016-08-16 12:34] LABS: Glucose,Whole Blood 175 mg/dL (75-99)
--- NOTE | 2016-08-16 13:45 | PN ---
DATE OF SERVICE: 08/15/2016 CHIEF COMPLAINT: The patient was admitted due to depression, feelings of hopelessness and inability to function. He asserted that he has ADHD as a primary problem. He has a history of use of marijuana and alcohol. INTERVAL HISTORY: Patient has been doing fair. He had a quiet evening last night. He said it takes until about 2 in the morning to fall asleep. He said he woke up once or twice through the night. He felt he slept fairly well once he got to sleep at 2. Today he has been up and about. He attends groups. He will interact some with others. He says he has not noted any changes since starting the Tofranil. He states that he does not have much hope in his life. He says it is not related to depression, but rather that he says he has ADHD. He says "no one wants to treat it" and that because of that. he basically is just waiting to because he does not have anything to look forward to. I discussed with the patient that Tofranil is a primary treatment for ADHD that did not seem to change his outlook on things. He says that when he is around others, he may put on a more pleasant face so that people do not intrude in his personal space. He says on the other hand he just does not like people. He does not like socialize. He is much more comfortable keeping to himself. 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 He says he is more comfortable working with animals then any interaction he might have with people. He does not note any significant issues or problems with his medications. He has not had any change in his general health. He tolerates his psychotropic medications. MENTAL STATUS: Patient sat without restlessness. Eye contact was fair at best. Psychomotor activity was slow. Speech monotone. He answered questions with brief responses. His thoughts were clear. His affect was flat. His mood depressed. He seemed moderately distressed. ASSESSMENT: I will continue the current diagnosis and treatment plan. I will increase Tofranil from 100 mg a day up to 150 mg a day. I reviewed issues relating to treatment for depression and ADHD as it relates to his Tofranil. At this point, the patient presents himself with significant signs of depression, though patient himself does not accept that as a diagnosis. For the most part he says that this is his personality and he does not anticipate change. On the other hand, he was in agreement with increasing the dose of his antidepressant. We will get an EKG on Wednesday. I advised the patient to be sure he lets his surgeon know that he is on a new medication, namely Tofranil. I suggested that the surgeon may choose to stop the medication just prior to his surgery. Also suggested that they may choose to get an EKG given that he has just had recent complaints of chest pain. I noted that he could get records from this hospital, including his copies of his EKG to bring to surgery. At this point, the plan will be to discharge the patient on Wednesday. We will coordinate with [facility] to set up follow-up. MARVIN
[2016-08-16 17:14] LABS: Glucose,Whole Blood 85 mg/dL (75-99)
--- NOTE | 2016-08-16 17:30 | PN ---
DATE OF SERVICE: 08/16/2016 CHIEF COMPLAINT: The patient was admitted due to depression, feelings of hopelessness and inability to function. He asserted that he has ADHD as a primary problem. He has a history of use of marijuana and alcohol. INTERVAL HISTORY: Patient has been doing fair. He had a quiet evening last night. He said that his sleep was fair. Staff noted no problems in the evening and through the night. He was increased on his Tofranil 250 mg a day. He has not had any problems with the increase. He says he does not see any difference. He has not attended groups. He continues with a fairly negative outlook. He did set up plans to be picked up for discharge tomorrow. Family will be able to pick him up around 8 in the evening. He has not had change in his general health. He tolerates his psychotropic medications. MENTAL STATUS: Patient gave fair eye contact. Psychomotor activity was slow. Speech was monotone. He gave brief responses. His affect was flat. His mood reserved. He was somewhat distressed. ASSESSMENT: I will continue the current diagnosis and treatment plan. Continue psychotropic medications the same. He will continue Tofranil 50 mg a day. We will do an EKG tomorrow. I reviewed issues related to the course of treatment with an antidepressant. The patient is in agreement with the plans towards discharge tomorrow.
[2016-08-16 20:36] LABS: Glucose,Whole Blood 234 mg/dL (75-99)
[2016-08-16] MEDS: IMIPRAMINE 25 MG TAB PO SCH (20:49)
[2016-08-16] MEDS: LORazepam 1 MG TAB PO SCH (20:50)
[2016-08-16] MEDS: ACETAMINOPHEN TAB 325 MG TAB PO PRN (20:54)
[2016-08-17 06:10] VITALS: BP 118/77; PULSE 79; RESP 18
[2016-08-17 06:34] LABS: Glucose,Whole Blood 112 mg/dL (75-99)
[2016-08-17] MEDS: INSULIN LISPRO (humaLOG) 300 UNIT/3 ML VIAL SQ SCH ×6 (08:02→17:55)
[2016-08-17] MEDS: INSULIN DETEMIR 100 UNIT/ML 10 ML VIAL SQ SCH (08:03)
[2016-08-17] MEDS: METOPROLOL TARTRATE 25 MG TAB PO SCH (09:06)
[2016-08-17] MEDS: LISINOPRIL 20 MG TAB PO SCH (09:06)
[2016-08-17] MEDS: RANOLAZINE 500 MG TAB.ER.12H PO SCH (09:06)
[2016-08-17] MEDS: metFORMIN 500 MG TAB PO SCH (09:06)
[2016-08-17] MEDS: ATORVASTATIN 40 MG TAB PO SCH (09:07)
[2016-08-17] MEDS: ISOSORBIDE MONONITRATE ER 30 MG TAB.ER.24H PO SCH (09:07)
[2016-08-17 12:48] LABS: Glucose,Whole Blood 140 mg/dL (75-99)
[2016-08-17 17:54] LABS: Glucose,Whole Blood 92 mg/dL (75-99)
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
== END 2016-08-17 19:56 | disposition home or self-care (01) | DRG 885 ==
LOC: 3MHU 17:16
PROVIDERS: ADMIT Psychiatry & Neurology Psychiatry; ATTEND Psychiatry & Neurology Psychiatry
DX: F33.8 Other recurrent depressive disorders (principal); E11.65 Type 2 diabetes mellitus with hyperglycemia; I10 Essential (primary) hypertension; I25.110 Atherosclerotic heart disease of native coronary artery with unstable angina pectoris; F12.90 Cannabis use, unspecified, uncomplicated; F90.9 Attention-deficit hyperactivity disorder, unspecified type; G89.29 Other chronic pain; Z79.899 Other long term (current) drug therapy; Z87.828 Personal history of other (healed) physical injury and trauma; Z91.410 Personal history of adult physical and sexual abuse; F10.10 Alcohol abuse, uncomplicated
CPT/HCPCS: 80306; 81003; 84443; 93005

== ENCOUNTER 2016-09-09 00:44 | Inpatient (IN) | payer MEDICARE, MEDICAID ==
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
[2016-09-09 02:19] LABS: Glucose,Whole Blood 224 mg/dL (75-99)
[2016-09-09] MEDS ORDERED: MAG HYDROX/AL HYDROX/SIMETH 30 ML, HYOSCYAMINE ELIXIR 10 ML, CIMETIDINE HCL 300 MG PO STA ×3 (04:45)
[2016-09-09 04:56] LABS: Basophils # (A) 0.1 k/uL (0-0.2); Basophils % (A) 1 %; CH 32.2; CHCM 35.2; Eosinophils # (A) 0.2 k/uL (0-0.7); Eosinophils % (A) 3 %; HCT 41.9 % (39.0-53.0); HDW 2.65; HGB 14.1 gm/dL (13.0-17.5); Luc # (Auto) 0.09; Luc % (Auto) 1; Lymphocytes # (A) 1.4 k/uL (1.0-4.8); Lymphocytes % (A) 21 %; MCHC 33.7 g/dL (31.0-37.0); Mean Platelet Volume 7.7; Monocytes # (A) 0.3 k/uL (0-1.0); Monocytes % (A) 5 %; Neutrophils # (A) 4.6 k/uL (1.3-7.7); Neutrophils % (A) 69 %; RBC 4.56 m/uL (4.30-5.90); WBC 6.6 k/uL (3.8-10.6); WBC (Perox) 6.32
[2016-09-09 05:02] LABS: ALT 32 U/L (21-72); AST 18 U/L (17-59); Alkaline Phosphatase 26 U/L (38-126); Anion Gap 16 mmol/L; Blood Urea Nitrogen 21 mg/dL (9-20); Calcium 9.9 mg/dL (8.4-10.2); Carbon Dioxide 22 mmol/L (22-30); Chloride 97 mmol/L (98-107); Glucose 229 mg/dL (74-99); Non-African American GFR(MDRD) >60 (>60 ml/min/1.73 sqM); Potassium 4.8 mmol/L (3.5-5.1); Sodium 135 mmol/L (137-145); Total Bilirubin 0.8 mg/dL (0.2-1.3); Total Protein 7.6 g/dL (6.3-8.2)
[2016-09-09 07:40] LABS: Appearance,Urine Clear (Clear); Bilirubin,Urine Negative (Negative); Glucose,Urine (UA) 4+ (Negative); Ketones,Urine Negative (Negative); Leukocyte Esterase,Urine Negative (Negative); Nitrite,Urine Negative (Negative); Protein,Urine Negative (Negative); Specific Gravity,Urine 1.007 (1.001-1.035); UA Billing (MACRO vs. MICRO) CHEM; Urobilinogen,Urine <2.0 mg/dL (<2.0)
[2016-09-09 14:15] LABS: Glucose,Whole Blood 284 mg/dL (75-99)
[2016-09-09] MEDS ORDERED: ACETAMINOPHEN TAB 325 MG TAB PO PRN (14:23)
[2016-09-09 17:11] LABS: Glucose,Whole Blood 327 mg/dL (75-99)
[2016-09-09] MEDS: INSULIN LISPRO (humaLOG) 300 UNIT/3 ML VIAL SQ SCH ×3 (18:03→20:29)
[2016-09-09] MEDS: metFORMIN 500 MG TAB PO SCH (18:08)
[2016-09-09 20:00] LABS: Glucose,Whole Blood 347 mg/dL (75-99)
[2016-09-09] MEDS: RANOLAZINE 500 MG TAB.ER.12H PO SCH (20:28)
[2016-09-09] MEDS: METOPROLOL TARTRATE 25 MG TAB PO SCH (20:28)
[2016-09-09] MEDS ORDERED: INSULIN LISPRO (humaLOG) 300 UNIT/3 ML VIAL SQ ONE (20:41)
[2016-09-09] MEDS ORDERED: IMIPRAMINE 25 MG TAB PO SCH (21:00)
[2016-09-09] MEDS ORDERED: LORazepam 1 MG TAB PO SCH (21:00)
[2016-09-09] MEDS ORDERED: INSULIN DETEMIR 100 UNIT/ML 10 ML VIAL SQ SCH (21:00)
[2016-09-10 06:19] LABS: Glucose,Whole Blood 75 mg/dL (75-99)
[2016-09-10] MEDS: INSULIN LISPRO (humaLOG) 300 UNIT/3 ML VIAL SQ SCH ×7 (07:57→21:21)
[2016-09-10] MEDS ORDERED: INSULIN DETEMIR 100 UNIT/ML 10 ML VIAL SQ SCH ×2 (09:00→21:00)
[2016-09-10] MEDS ORDERED: LISINOPRIL 20 MG TAB PO SCH (09:00)
[2016-09-10 09:02] LABS: Basophils # (A) 0.1 k/uL (0-0.2); Basophils % (A) 2 %; CH 31.7; CHCM 34.8; Eosinophils # (A) 0.3 k/uL (0-0.7); Eosinophils % (A) 3 %; HCT 44.4 % (39.0-53.0); HDW 2.81; HGB 15.4 gm/dL (13.0-17.5); Luc % (Auto) 1; Lymphocytes # (A) 1.8 k/uL (1.0-4.8); Lymphocytes % (A) 22 %; MCH 31.7 pg (25.0-35.0); MCHC 34.7 g/dL (31.0-37.0); MCV 91.5 fL (80.0-100.0); Mean Platelet Volume 7.1; Monocytes # (A) 0.4 k/uL (0-1.0); Monocytes % (A) 5 %; Neutrophils # (A) 5.5 k/uL (1.3-7.7); Neutrophils % (A) 68 %; RBC 4.85 m/uL (4.30-5.90); RDW 12.6 % (11.5-15.5); WBC 8.1 k/uL (3.8-10.6); WBC (Perox) 7.97
[2016-09-10 09:17] LABS: ALT 31 U/L (21-72); AST 20 U/L (17-59); Alkaline Phosphatase 27 U/L (38-126); Anion Gap 13 mmol/L; Blood Urea Nitrogen 25 mg/dL (9-20); Calcium 9.8 mg/dL (8.4-10.2); Carbon Dioxide 25 mmol/L (22-30); Chloride 101 mmol/L (98-107); Glucose 183 mg/dL (74-99); Non-African American GFR(MDRD) >60 (>60 ml/min/1.73 sqM); Potassium 4.8 mmol/L (3.5-5.1); Sodium 139 mmol/L (137-145); Total Protein 7.9 g/dL (6.3-8.2)
[2016-09-10] MEDS: metFORMIN 500 MG TAB PO SCH ×2 (09:28→16:30)
[2016-09-10] MEDS: CLOPIDOGREL 75 MG TAB PO SCH (09:28)
[2016-09-10] MEDS: METOPROLOL TARTRATE 25 MG TAB PO SCH ×2 (09:28→21:21)
[2016-09-10] MEDS: RANOLAZINE 500 MG TAB.ER.12H PO SCH ×2 (09:29→21:21)
[2016-09-10] MEDS: LINAGLIPTIN 5 MG TABLET PO SCH (09:29)
[2016-09-10] MEDS: ISOSORBIDE DINITRATE 10 MG TAB PO SCH (09:29)
[2016-09-10] MEDS: ATORVASTATIN 40 MG TAB PO SCH (09:29)
[2016-09-10] MEDS: glipiZIDE 10 MG TAB PO SCH (09:29)
[2016-09-10 10:03] LABS: Hemoglobin A1C 8.3 % (4.2-6.1)
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
[2016-09-10] MEDS: DULoxetine HCL 30 MG CAPSULE.DR PO SCH (11:10)
[2016-09-10 12:29] LABS: Glucose,Whole Blood 232 mg/dL (75-99)
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
[2016-09-10 17:35] LABS: Glucose,Whole Blood 102 mg/dL (75-99)
[2016-09-10] MEDS: MAGNESIUM HYDROXIDE 2,400 MG/10 ML CUP PO PRN (18:31)
[2016-09-10 20:56] LABS: Glucose,Whole Blood 149 mg/dL (75-99)
[2016-09-10] MEDS: INSULIN DETEMIR 100 UNIT/ML 10 ML VIAL SQ SCH (21:20)
[2016-09-10] MEDS: traZODone HCL 50 MG TAB PO SCH (21:21)
[2016-09-11] MEDS: LORazepam 1 MG TAB PO PRN (00:57)
[2016-09-11 00:58] LABS: Glucose,Whole Blood 306 mg/dL (75-99)
[2016-09-11 06:15] LABS: Glucose,Whole Blood 185 mg/dL (75-99)
[2016-09-11] MEDS: INSULIN LISPRO (humaLOG) 300 UNIT/3 ML VIAL SQ SCH ×7 (08:17→20:20)
[2016-09-11] MEDS: ATORVASTATIN 40 MG TAB PO SCH (08:20)
[2016-09-11] MEDS: CLOPIDOGREL 75 MG TAB PO SCH (08:20)
[2016-09-11] MEDS: metFORMIN 500 MG TAB PO SCH ×2 (08:20→18:17)
[2016-09-11] MEDS: glipiZIDE 10 MG TAB PO SCH (08:21)
[2016-09-11] MEDS: DULoxetine HCL 30 MG CAPSULE.DR PO SCH (08:21)
[2016-09-11] MEDS: LINAGLIPTIN 5 MG TABLET PO SCH (08:21)
[2016-09-11] MEDS: METOPROLOL TARTRATE 25 MG TAB PO SCH ×2 (08:21→20:19)
[2016-09-11] MEDS: ISOSORBIDE DINITRATE 10 MG TAB PO SCH (08:21)
[2016-09-11] MEDS: LISINOPRIL 10 MG TAB PO SCH (08:21)
[2016-09-11] MEDS: RANOLAZINE 500 MG TAB.ER.12H PO SCH ×2 (08:22→20:19)
--- NOTE | 2016-09-11 08:52 | P.PN ---
Progress Note - Text Interval history: The patient is found in the dining room he follows me to an interview room. He reports his mood continues to be depressed. He states "I don't want to kill myself but I don't want to be anywhere". He has hopeless thinking. He feels overwhelmed by stressors. He states he can't return back to his apartment because of his female neighbor and "all of the drunks that live there". His plan is to live in his van upon discharge. The patient was seen by the supervisor special effects his blood sugars and blood pressure were reviewed. We discussed the trazodone and Cymbalta. The patient has no questions regarding those medications. He reports he did not attend groups well yesterday and reported that he isolated in his room. We discussed that he should stay up out of bed during the day to improve his sleep at night. Mental status exam: The patient is a disheveled male appearing his stated age he seated calmly eye contact is appropriate. Speech is fluent spontaneous he is soft-spoken. He reports a depressed mood with hopelessness thinking he reports he feels safe in the hospital and would not harm himself here. He is endorsing no homicidal ideation. There is no report of auditory or visual hallucinations no report of specific delusions. There is no evidence of psychosis. He does not appear hypomanic or manic. He does appear to struggle with focus and concentration during our session. He demonstrates no verbal or physical aggressiveness. He maintains a bland affect with little reactivity. Insight and judgment limited. He is oriented to person place month and year. Plan: The patient will continue on the Cymbalta 30 mg daily this could likely be increased to 60 mg in the next few days he will continue the trazodone 50 mg at bedtime. He is encouraged to participate in the milieu. We will continue to monitor his blood sugar and blood pressure. We will monitor him for safety. Social work will continue meeting with the patient to discuss residential options.
[2016-09-11 12:17] LABS: Glucose,Whole Blood 88 mg/dL (75-99)
[2016-09-11 16:55] LABS: Glucose,Whole Blood 58 mg/dL (75-99)
[2016-09-11 17:15] LABS: Glucose,Whole Blood 128 mg/dL (75-99)
[2016-09-11] MEDS: MAGNESIUM HYDROXIDE 2,400 MG/10 ML CUP PO PRN (18:57)
[2016-09-11 20:19] LABS: Glucose,Whole Blood 156 mg/dL (75-99)
[2016-09-11] MEDS: traZODone HCL 50 MG TAB PO SCH (20:19)
[2016-09-11] MEDS: INSULIN DETEMIR 100 UNIT/ML 10 ML VIAL SQ SCH (20:27)
[2016-09-12 05:09] LABS: Glucose,Whole Blood 137 mg/dL (75-99)
[2016-09-12] MEDS: LORazepam 1 MG TAB PO PRN (05:09)
[2016-09-12] MEDS: metFORMIN 500 MG TAB PO SCH ×2 (08:33→18:41)
[2016-09-12] MEDS: CLOPIDOGREL 75 MG TAB PO SCH (08:34)
[2016-09-12] MEDS: glipiZIDE 10 MG TAB PO SCH (08:34)
[2016-09-12] MEDS: ISOSORBIDE DINITRATE 10 MG TAB PO SCH (08:34)
[2016-09-12] MEDS: ATORVASTATIN 40 MG TAB PO SCH (08:34)
[2016-09-12] MEDS: DULoxetine HCL 30 MG CAPSULE.DR PO SCH (08:34)
[2016-09-12] MEDS: LISINOPRIL 10 MG TAB PO SCH (08:35)
[2016-09-12] MEDS: METOPROLOL TARTRATE 25 MG TAB PO SCH ×2 (08:35→20:52)
[2016-09-12] MEDS: RANOLAZINE 500 MG TAB.ER.12H PO SCH ×2 (08:35→20:52)
[2016-09-12] MEDS: LINAGLIPTIN 5 MG TABLET PO SCH (08:35)
[2016-09-12] MEDS: INSULIN LISPRO (humaLOG) 300 UNIT/3 ML VIAL SQ SCH ×7 (08:36→21:20)
[2016-09-12] MEDS: MAG HYDROX/AL HYDROX/SIMETH 30 ML CUP PO PRN (09:45)
[2016-09-12 12:14] LABS: Glucose,Whole Blood 90 mg/dL (75-99)
[2016-09-12 12:30] VITALS: BMI 26.4
--- NOTE | 2016-09-12 16:21 | P.PN ---
Progress Note - Text SUBJECTIVE: The medical record and interviewed Mr. Green. He is a 55-year- old male is a history of a closed head injury. He presented to unit with complaints of depression with suicidal ideation. In addition, he has a history of an alcohol use disorder. He complained of continued insomnia despite the current dose of trazodone. He alleged had "a couple hours" sleep last night. Regarding his depression he stated that he is feeling as though he is "coming out of the bland." He feels less depressed but remained anxious about his living situation. He does not want to return to his apartment because of the risk of relapse to alcohol. We discussed a trial of Seroquel for sleep and augmentation of his antidepressant. He expressed an interest in a three-quarter house. OBJECTIVE: He presented as a casually groomed 55-year-old male who was pleasant on approach. He made eye contact and attended the interview. He had no distinguishing features or prominent physical abnormalities. He had a blunted facial expression. He had slight psychomotor retardation but no abnormal involuntary movements. Speech was spontaneous with slight decrease in rate and rhythm. He had no articulation difficulties. His affect was depressed but reactive. He denied suicidal ideation or wishes. He denied homicidal ideation. He does not feel hopeless or helpless. He ruminated about his living situation. He did not express phobias, ideas reference, paranoid ideation or delusional thinking. His thinking was concrete but his associations were coherent and logical. He denied hallucinations and did not appear to be responding to internal stimuli. He slept only 3 hours last night. ASSESSMENT: He continues to have some symptoms of depression but overall his depression has improved from admission. He continues to have difficulty falling and staying asleep. He may benefit from referral to a three-quarter house. PLAN: They do inpatient hospitalization. Continue suicide precautions with 15 minute checks. Continue Cymbalta 30 mg daily. Discontinue Desyrel and begin a trial of Seroquel 100 mg at bedtime and titrate according to clinical effect and tolerance. Continue other medications as recommended by the workforce consultant music engineer. wash worker to assist with referral to a three-quarter house. Encourage participation in therapeutic groups and activities. Evaluate clinical status response to treatment daily basis.
[2016-09-12 17:42] LABS: Glucose,Whole Blood 131 mg/dL (75-99)
[2016-09-12 20:08] LABS: Glucose,Whole Blood 186 mg/dL (75-99)
[2016-09-12] MEDS: QUEtiapine 100 MG TAB PO SCH (20:52)
[2016-09-12] MEDS: INSULIN DETEMIR 100 UNIT/ML 10 ML VIAL SQ SCH (21:19)
[2016-09-13 06:56] LABS: Glucose,Whole Blood 150 mg/dL (75-99)
[2016-09-13] MEDS: metFORMIN 500 MG TAB PO SCH ×2 (08:59→17:28)
[2016-09-13] MEDS: glipiZIDE 10 MG TAB PO SCH (09:00)
[2016-09-13] MEDS: LINAGLIPTIN 5 MG TABLET PO SCH (09:00)
[2016-09-13] MEDS: ATORVASTATIN 40 MG TAB PO SCH (09:00)
[2016-09-13] MEDS: ISOSORBIDE DINITRATE 10 MG TAB PO SCH (09:00)
[2016-09-13] MEDS: RANOLAZINE 500 MG TAB.ER.12H PO SCH ×2 (09:00→20:18)
[2016-09-13] MEDS: CLOPIDOGREL 75 MG TAB PO SCH (09:00)
[2016-09-13] MEDS: METOPROLOL TARTRATE 25 MG TAB PO SCH ×2 (09:00→20:18)
[2016-09-13] MEDS: LISINOPRIL 10 MG TAB PO SCH (09:00)
[2016-09-13] MEDS: DULoxetine HCL 30 MG CAPSULE.DR PO SCH (09:00)
[2016-09-13] MEDS: INSULIN LISPRO (humaLOG) 300 UNIT/3 ML VIAL SQ SCH ×7 (09:01→20:36)
--- NOTE | 2016-09-13 12:30 | P.PN ---
Progress Note - Text SUBJECTIVE: I reviewed the medical record and interviewed Mr. Green. He is a 55-year-old male is a history of a closed head injury. He presented to unit with complaints of depression with suicidal ideation. In addition, he has a history of an alcohol use disorder. He complained of tired. He remains interested in a three-quarter house because concerned that he would relapse if he were to return to his apartment. OBJECTIVE: He presented as a casually groomed 55-year-old male who was pleasant on approach. He made eye contact and attended the interview. He had no distinguishing features or prominent physical abnormalities. He had a blunted facial expression. He had slight psychomotor retardation but no abnormal involuntary movements. Speech was spontaneous with slight decrease in rate and rhythm. He had no articulation difficulties. His affect was depressed but reactive. He denied suicidal ideation or wishes. He denied homicidal ideation. He does not feel hopeless or helpless. He ruminated about his living situation. He did not express phobias, ideas reference, paranoid ideation or delusional thinking. His thinking was concrete but his associations were coherent and logical. He denied hallucinations and did not appear to be responding to internal stimuli. He slept only 5 hours last night. ASSESSMENT: He is more fatigued today than yesterday and the fatigue may be too to the at bedtime dose of Seroquel. However, his sleep improved with the Seroquel. He may benefit from referral to a three-quarter house. PLAN: Continue inpatient hospitalization. Continue suicide precautions with 15 minute checks. Continue Cymbalta 30 mg daily and Seroquel 100 mg at bedtime and titrate according to clinical effect and tolerance. Continue other medications as recommended by the industry consultant machine tool technology instructor. process worker to assist with with placement; consider referral to a three-quarter house. Encourage participation in therapeutic groups and activities. Evaluate clinical status response to treatment daily basis.
[2016-09-13 12:40] LABS: Glucose,Whole Blood 70 mg/dL (75-99)
[2016-09-13] MEDS: MAG HYDROX/AL HYDROX/SIMETH 30 ML CUP PO PRN ×2 (14:43→21:38)
[2016-09-13 17:35] LABS: Glucose,Whole Blood 194 mg/dL (75-99)
[2016-09-13 20:16] LABS: Glucose,Whole Blood 113 mg/dL (75-99)
[2016-09-13] MEDS: QUEtiapine 100 MG TAB PO SCH (20:18)
[2016-09-13] MEDS: INSULIN DETEMIR 100 UNIT/ML 10 ML VIAL SQ SCH (20:35)
[2016-09-14 06:36] LABS: Glucose,Whole Blood 83 mg/dL (75-99)
[2016-09-14] MEDS: INSULIN LISPRO (humaLOG) 300 UNIT/3 ML VIAL SQ SCH ×7 (08:02→20:34)
[2016-09-14] MEDS: metFORMIN 500 MG TAB PO SCH ×2 (08:06→18:08)
[2016-09-14] MEDS: ATORVASTATIN 40 MG TAB PO SCH (08:06)
[2016-09-14] MEDS: CLOPIDOGREL 75 MG TAB PO SCH (08:07)
[2016-09-14] MEDS: DULoxetine HCL 30 MG CAPSULE.DR PO SCH (08:08)
[2016-09-14] MEDS: LISINOPRIL 10 MG TAB PO SCH (08:14)
[2016-09-14] MEDS: METOPROLOL TARTRATE 25 MG TAB PO SCH ×2 (08:14→20:36)
[2016-09-14] MEDS: RANOLAZINE 500 MG TAB.ER.12H PO SCH ×2 (08:14→20:36)
[2016-09-14] MEDS: LINAGLIPTIN 5 MG TABLET PO SCH (08:14)
[2016-09-14] MEDS: ISOSORBIDE DINITRATE 10 MG TAB PO SCH (08:14)
[2016-09-14] MEDS: glipiZIDE 10 MG TAB PO SCH (08:15)
[2016-09-14 12:46] LABS: Glucose,Whole Blood 84 mg/dL (75-99)
--- NOTE | 2016-09-14 14:53 | P.PN ---
Progress Note - Text INTERVERAL HISTORY:Covering for Dr Lam. Reviewed chart, discussed in treatment team. Patient is a 55-year-old single male with a history of depression, and closed head injury. He presented to our unit with complaints of depression and suicidal ideation. He reports that he can't go back to his apartment, can't afford it, and too many drunks in the area, he would relapse if he were to return to his apartment. Patient reports he wants help with housing, and he also wants to be treated for ADHD. States he was treated when he was 7 years old, but no treatment since then. Patient reports he does not know what medications he is taking, but that he is sleeping a little bit better for the last 2 nights. Says he is still depressed , and willing to take an increased dose of his antidepressant med. Patient was dismissive of the treatment he has received here, feeling that is not been helpful, that he needs housing and that he needs to be treated for ADHD. Patient states he wishes he is but he has no suicidal ideation plan or intent. MENTAL STATUS EXAM: Alert and oriented 3, poor eye contact, minimal cooperation. Speech low volume normal rate and production. Slight psychomotor retardation but no abnormal involuntary movements. Mood dysphoric and affect constricted. Denies suicidal ideation denies plans or intent. PLAN: Continue inpatient hospitalization. Increase Cymbalta to 60 mg daily, continue quetiapine 100 mg at bedtime. Continue other medications as recommended by maritime guard. asphalt plant worker provided patient with the paperwork for him to obtain a fiduciary/ guardian. She also gave him information on low income housing in the surrounding [facility].
[2016-09-14 15:07] LABS: Glucose,Whole Blood 54 mg/dL (75-99)
[2016-09-14 15:40] LABS: Glucose,Whole Blood 102 mg/dL (75-99)
[2016-09-14 17:58] LABS: Glucose,Whole Blood 69 mg/dL (75-99)
[2016-09-14 18:26] LABS: Glucose,Whole Blood 78 mg/dL (75-99)
[2016-09-14 20:09] LABS: Glucose,Whole Blood 194 mg/dL (75-99)
[2016-09-14] MEDS: QUEtiapine 100 MG TAB PO SCH (20:39)
[2016-09-14] MEDS: INSULIN DETEMIR 100 UNIT/ML 10 ML VIAL SQ SCH (20:39)
[2016-09-14] MEDS: LORazepam 1 MG TAB PO PRN (21:30)
[2016-09-15 05:58] LABS: Glucose,Whole Blood 62 mg/dL (75-99)
[2016-09-15 06:11] LABS: Glucose,Whole Blood 87 mg/dL (75-99)
[2016-09-15] MEDS: INSULIN LISPRO (humaLOG) 300 UNIT/3 ML VIAL SQ SCH ×5 (08:08→13:56)
[2016-09-15] MEDS ORDERED: DULoxetine HCL 60 MG CAPSULE.DR PO SCH (09:00)
[2016-09-15] MEDS: ISOSORBIDE DINITRATE 10 MG TAB PO SCH (09:20)
[2016-09-15] MEDS: glipiZIDE 10 MG TAB PO SCH (09:20)
[2016-09-15] MEDS: LINAGLIPTIN 5 MG TABLET PO SCH (09:20)
[2016-09-15] MEDS: CLOPIDOGREL 75 MG TAB PO SCH (09:20)
[2016-09-15] MEDS: metFORMIN 500 MG TAB PO SCH (09:20)
[2016-09-15] MEDS: ATORVASTATIN 40 MG TAB PO SCH (09:20)
[2016-09-15] MEDS: LISINOPRIL 10 MG TAB PO SCH (09:21)
[2016-09-15] MEDS: RANOLAZINE 500 MG TAB.ER.12H PO SCH (09:21)
[2016-09-15] MEDS: METOPROLOL TARTRATE 25 MG TAB PO SCH (09:21)
[2016-09-15] MEDS: LORazepam 1 MG TAB PO PRN (09:22)
[2016-09-15 09:27] VITALS: BP 139/84; PULSE 89; RESP 18; TEMP 97.6
--- NOTE | 2016-09-15 12:31 | P.DS ---
Providers Date of admission: 09/09/16 13:46 Expected date of discharge: 09/15/16 Attending physician: Yasmani Lam Consults: 09/09/16 14:23 Consult Physician Routine Consulting Provider: Ezra Coleman Consult Reason/Comments: history and phsyical Do you want consulting provider notified?: Yes Primary care physician: [facility] Course: Patient is a 55-year-old male admitted to the mental health unit through the emergency room for suicidal ideation patient reported that he was feeling depressed and hopeless and frustrated he experiences tearfulness and he states his sleep has been decreased and energy is low for several years. He has been having problems with managing his finances and he has been known to spend impulsively he reports that his rent is too expensive and he needs to get back to subsidized housing Patient was started on Cymbalta and that was increased to 60 mg quetiapine was added for sleep patient reported improved sleep. Patient's primary problem as he reported was that he has ADHD and that he is not being treated for that he had hoped that his ADHD would be treated here when informed that it would not he said he doesn't probably need treatment here that. Today patient approached marketing underwriter and asked if he could be discharged. Discussed with social professionals who has been working with him for low income housing, and that he is ready to go with follow-up appointments. Patient alert and oriented 3, good eye contact, fair groomed in street clothing. Speech normal volume, rate and production. Coherent, logical and goal directed thought process. No JADEN, no FOI. [No TB/TW/ TI] Denied auditory and visual hallucinations. Denied paranoid ideation, delusions or IOR. Memory [intact] Cognition average Mood neutral, affect constricted, congruent with mood. Denies suicidal ideation, denies homicidal ideation. 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 traumatic brain injury Alcohol use disorder Cannabis use disorder Patient is stable for discharge Patient Condition at Discharge: Stable Plan - Discharge Summary New Discharge Prescriptions: DULoxetine HCL [Cymbalta] 60 mg PO DAILY #30 cap QUEtiapine [SEROquel] 100 mg PO HS #30 tab Discharge Medication List Atorvastatin [Lipitor] 40 mg PO DAILY #30 tablet 08/17/16 [Rx] Clopidogrel Bisulfate [Plavix] 75 mg PO DAILY 30 Days 08/17/16 [Rx] INSULIN LISPRO (humaLOG) [humaLOG (formulary)] 5 unit SQ AC-TID 30 Days [Rx] Insulin Detemir [Levemir] 40 unit SQ DAILY 30 Days 08/17/16 [Rx] Isosorbide Dinitrate 30 mg PO DAILY 30 Days 08/17/16 [Rx] LORazepam [Ativan] 1 mg PO HS 30 Days 08/17/16 [Rx] Metoprolol Tartrate [Lopressor] 25 mg PO BID #30 tab 08/17/16 [Rx] Ramipril [Altace] 5 mg PO DAILY 30 Days 08/17/16 [Rx] Ranolazine [Ranexa] 1,000 mg PO BID 30 Days 08/17/16 [Rx] glipiZIDE [Glucotrol] 10 mg PO DAILY 30 Days 08/17/16 [Rx] sitaGLIPtin [Januvia] 100 mg PO DAILY 30 Days 08/17/16 [Rx] INSULIN LISPRO (humaLOG) [humaLOG (formulary)] See Protocol SQ ACHS 09/09/16 [ History] metFORMIN HCL 1,000 mg PO BID 09/09/16 [History] DULoxetine HCL [Cymbalta] 60 mg PO DAILY #30 cap 09/15/16 [Rx] QUEtiapine [SEROquel] 100 mg PO HS #30 tab 09/15/16 [Rx] Follow up Appointment(s)/Referral(s): Psychological,List [Other] - 09/17/16 4:15 pm (Aravind Brito) Jenna Cuellar DO [Primary Care Provider] - 1-2 days Discharge Disposition: HOME SELF-CARE
[2016-09-15 13:09] LABS: Glucose,Whole Blood 125 mg/dL (75-99)
== END 2016-09-15 13:58 | disposition home or self-care (01) | DRG 885 ==
LOC: EC 00:44 → 3MHU 13:46
PROVIDERS: ADMIT Psychiatry & Neurology Psychiatry; ATTEND Psychiatry & Neurology Psychiatry
DX: F33.2 Major depressive disorder, recurrent severe without psychotic features (principal); R45.851 Suicidal ideations; E11.65 Type 2 diabetes mellitus with hyperglycemia; I95.9 Hypotension, unspecified; I10 Essential (primary) hypertension; E78.5 Hyperlipidemia, unspecified; F90.9 Attention-deficit hyperactivity disorder, unspecified type; G47.00 Insomnia, unspecified; G89.29 Other chronic pain; I25.10 Atherosclerotic heart disease of native coronary artery without angina pectoris; F41.9 Anxiety disorder, unspecified; M25.519 Pain in unspecified shoulder; M54.9 Dorsalgia, unspecified; F12.90 Cannabis use, unspecified, uncomplicated; Z72.89 Other problems related to lifestyle; Z79.899 Other long term (current) drug therapy; Z79.4 Long term (current) use of insulin; Z88.8 Allergy status to other drugs, medicaments and biological substances; Z87.891 Personal history of nicotine dependence; Z59.9 Problem related to housing and economic circumstances, unspecified; Z82.49 Family history of ischemic heart disease and other diseases of the circulatory system
CPT/HCPCS: 36415; 80053; 80306; 81003; 82075; 83036; 84443; 85025

== ENCOUNTER 2016-11-19 20:10 | Emergency (ER) | payer MEDICARE, OTHER ==
[2016-11-19 20:20] LABS: Glucose,Whole Blood 315 mg/dL (75-99)
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
[2016-11-19 20:41] LABS: Basophils # (A) 0.1 k/uL (0-0.2); Basophils % (A) 2 %; CH 31.8; CHCM 34.4; Eosinophils # (A) 0.1 k/uL (0-0.7); Eosinophils % (A) 2 %; HCT 36.5 % (39.0-53.0); HDW 2.86; HGB 12.4 gm/dL (13.0-17.5); Luc # (Auto) 0.17; Luc % (Auto) 4; Lymphocytes % (A) 25 %; MCH 31.5 pg (25.0-35.0); MCHC 33.9 g/dL (31.0-37.0); MCV 92.9 fL (80.0-100.0); Mean Platelet Volume 8.6; Monocytes # (A) 0.4 k/uL (0-1.0); Monocytes % (A) 10 %; Neutrophils # (A) 2.3 k/uL (1.3-7.7); Neutrophils % (A) 58 %; RBC 3.92 m/uL (4.30-5.90); RDW 13.3 % (11.5-15.5); WBC 3.9 k/uL (3.8-10.6); WBC (Perox) 4.11
[2016-11-19 20:45] LABS: Appearance,Urine Clear (Clear); Bilirubin,Urine Negative (Negative); Glucose,Urine (UA) 4+ (Negative); Ketones,Urine Negative (Negative); Leukocyte Esterase,Urine Negative (Negative); Nitrite,Urine Negative (Negative); Protein,Urine Negative (Negative); Specific Gravity,Urine 1.013 (1.001-1.035); UA Billing (MACRO vs. MICRO) CHEM; Urobilinogen,Urine <2.0 mg/dL (<2.0)
[2016-11-19 20:51] LABS: ALT 31 U/L (21-72); AST 33 U/L (17-59); Alkaline Phosphatase 29 U/L (38-126); Anion Gap 10 mmol/L; Blood Urea Nitrogen 18 mg/dL (9-20); Carbon Dioxide 21 mmol/L (22-30); Chloride 107 mmol/L (98-107); Glucose 349 mg/dL (74-99); Magnesium 1.6 mg/dL (1.6-2.3); Non-African American GFR(MDRD) >60 (>60 ml/min/1.73 sqM); Potassium 5.3 mmol/L (3.5-5.1); Sodium 138 mmol/L (137-145); Total Bilirubin 0.7 mg/dL (0.2-1.3); Total Protein 6.3 g/dL (6.3-8.2)
[2016-11-19 20:56] LABS: Prothrombin Time 10.5 sec (9.0-12.0)
[2016-11-19 20:58] LABS: Partial Thromboplastin Time 21.4 sec (22.0-30.0)
--- NOTE | 2016-11-19 20:58 | XR ---
EXAMINATION TYPE: XR chest 2V DATE OF EXAM: 11/19/2016 COMPARISON: Prior chest x-ray 08/05/2016 HISTORY: Weakness, coronary artery disease and hypertension TECHNIQUE: Frontal and lateral views of the chest are obtained. FINDINGS: There is no focal air space opacity, pleural effusion, or pneumothorax seen. The cardiac silhouette size is within normal limits. There are overlying cardiac leads. Prominent lung volume ma y be indicative of underlying COPD. The osseous structures are intact. IMPRESSION: No acute cardiopulmonary process.
[2016-11-19 20:59] LABS: Creatine Kinase 114 U/L (55-170)
[2016-11-19 21:13] LABS: Troponin I <0.012 ng/mL (0.000-0.034)
[2016-11-19 21:31] VITALS: RESP 16
[2016-11-19] MEDS ORDERED: SODIUM CHLORIDE 0.9% 500 ML IV STA (21:49)
[2016-11-19] MEDS ORDERED: INSULIN REGULAR 100 UNIT/ML VIAL SQ ONE (21:58)
[2016-11-19 21:59] LABS: Glucose,Whole Blood 303 mg/dL (75-99)
[2016-11-19] MEDS ORDERED: ACET/COD 300 MG/30 MG STARTER PACK 6 TAB BTL PO STA (22:02)
[2016-11-19 22:54] VITALS: BP 151/72; PULSE 92; TEMP 98.4
== END 2016-11-19 23:04 | disposition home or self-care (01) ==
LOC: EC 20:10
DX: E11.65 Type 2 diabetes mellitus with hyperglycemia (principal); I10 Essential (primary) hypertension; G89.29 Other chronic pain; F32.9 Major depressive disorder, single episode, unspecified; F41.9 Anxiety disorder, unspecified; I25.2 Old myocardial infarction; Z87.891 Personal history of nicotine dependence; Z79.84 Long term (current) use of oral hypoglycemic drugs; Z79.899 Other long term (current) drug therapy; Z88.8 Allergy status to other drugs, medicaments and biological substances; Z95.818 Presence of other cardiac implants and grafts
CPT/HCPCS: 36415; 71020; 80053; 81003; 82009; 82550; 82553; 83735; 84484; 85025; 85610; 85730; 93005; 96360; 99285

== ENCOUNTER 2016-12-03 11:10 | Inpatient (IN) | payer MEDICARE, MEDICAID ==
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
[2016-12-03] MEDS ORDERED: MAG HYDROX/AL HYDROX/SIMETH 30 ML CUP PO PRN (15:42)
[2016-12-03] MEDS ORDERED: MAGNESIUM HYDROXIDE 2,400 MG/10 ML CUP PO PRN (15:42)
[2016-12-03] MEDS ORDERED: ACETAMINOPHEN TAB 325 MG TAB PO PRN (15:42)
[2016-12-03] MEDS ORDERED: ZIPRASIDONE 20 MG VIAL IM PRN (15:42)
[2016-12-03] MEDS ORDERED: NITROGLYCERIN SL TABS 0.4 MG TAB SUBLINGUAL PRN (15:51)
[2016-12-03 16:53] LABS: Glucose,Whole Blood 99 mg/dL (75-99)
[2016-12-03] MEDS: metFORMIN 500 MG TAB PO SCH (17:03)
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
[2016-12-03 19:02] LABS: Appearance,Urine Clear (Clear); Bacteria,Urine Moderate /hpf; Bilirubin,Urine Negative (Negative); Glucose,Urine (UA) Trace (Negative); Ketones,Urine Negative (Negative); Leukocyte Esterase,Urine Small (Negative); Mucus,Urine Rare /hpf; Nitrite,Urine Positive (Negative); Particle Count 1118; Protein,Urine Trace (Negative); RBC,Urine <1 /hpf (0-5); Squamous Epithelial Cell,Urine <1 /hpf (0-4); UA Billing (MACRO vs. MICRO) MICRO; Urobilinogen,Urine <2.0 mg/dL (<2.0); WBC,Urine 7 /hpf (0-5)
[2016-12-03] MEDS: LORazepam 1 MG TAB PO PRN (19:13)
[2016-12-03 19:51] LABS: Glucose,Whole Blood 171 mg/dL (75-99)
[2016-12-03] MEDS: METOPROLOL TARTRATE 25 MG TAB PO SCH (19:54)
[2016-12-03] MEDS: ATORVASTATIN 40 MG TAB PO SCH (19:55)
[2016-12-03] MEDS: IBUPROFEN 400 MG TAB PO PRN (22:06)
[2016-12-04 06:07] LABS: Glucose,Whole Blood 197 mg/dL (75-99)
[2016-12-04] MEDS: LORazepam 1 MG TAB PO PRN ×2 (06:25→15:43)
[2016-12-04] MEDS: METOPROLOL TARTRATE 25 MG TAB PO SCH ×2 (06:43→20:23)
[2016-12-04] MEDS: PIOGLITAZONE 30 MG TAB PO SCH (08:05)
[2016-12-04] MEDS: glipiZIDE 10 MG TAB PO SCH (08:05)
[2016-12-04] MEDS: metFORMIN 500 MG TAB PO SCH ×2 (08:05→17:06)
[2016-12-04] MEDS: ISOSORBIDE MONONITRATE ER 60 MG TAB.ER.24H PO SCH (08:05)
[2016-12-04] MEDS: LINAGLIPTIN 5 MG TABLET PO SCH (08:06)
[2016-12-04] MEDS: CLOPIDOGREL 75 MG TAB PO SCH (08:06)
[2016-12-04 09:17] LABS: Basophils # (A) 0.1 k/uL (0-0.2); Basophils % (A) 1 %; CH 31.8; CHCM 33.3; Eosinophils # (A) 0.1 k/uL (0-0.7); Eosinophils % (A) 2 %; HCT 37.6 % (39.0-53.0); HDW 2.63; HGB 12.3 gm/dL (13.0-17.5); Luc # (Auto) 0.09; Luc % (Auto) 2; Lymphocytes # (A) 1.3 k/uL (1.0-4.8); Lymphocytes % (A) 25 %; MCH 31.3 pg (25.0-35.0); MCHC 32.6 g/dL (31.0-37.0); Mean Platelet Volume 7.7; Monocytes # (A) 0.5 k/uL (0-1.0); Monocytes % (A) 9 %; Neutrophils # (A) 3.2 k/uL (1.3-7.7); Neutrophils % (A) 61 %; RBC 3.92 m/uL (4.30-5.90); RDW 13.3 % (11.5-15.5); WBC 5.3 k/uL (3.8-10.6); WBC (Perox) 5.12
[2016-12-04 09:34] LABS: Anion Gap 10 mmol/L; Calcium 8.7 mg/dL (8.4-10.2); Carbon Dioxide 23 mmol/L (22-30); Chloride 106 mmol/L (98-107); Glucose 234 mg/dL (74-99); Non-African American GFR(MDRD) >60 (>60 ml/min/1.73 sqM); Sodium 139 mmol/L (137-145); Total Bilirubin 0.8 mg/dL (0.2-1.3); Total Protein 6.2 g/dL (6.3-8.2)
[2016-12-04 10:10] LABS: ALT 27 U/L (21-72); AST 27 U/L (17-59); Blood Urea Nitrogen 19 mg/dL (9-20); Potassium 4.5 mmol/L (3.5-5.1)
[2016-12-04 10:11] LABS: Alkaline Phosphatase <20 U/L (38-126)
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
[2016-12-04] MEDS: DULoxetine HCL 30 MG CAPSULE.DR PO SCH (12:20)
[2016-12-04 12:26] LABS: Glucose,Whole Blood 165 mg/dL (75-99)
[2016-12-04 12:33] LABS: Hemoglobin A1C 8.4 % (4.2-6.1)
[2016-12-04 16:55] LABS: Glucose,Whole Blood 156 mg/dL (75-99)
[2016-12-04 20:02] LABS: Glucose,Whole Blood 190 mg/dL (75-99)
[2016-12-04] MEDS: ATORVASTATIN 40 MG TAB PO SCH (20:23)
[2016-12-04] MEDS: IBUPROFEN 400 MG TAB PO PRN (20:39)
[2016-12-05 06:28] LABS: Glucose,Whole Blood 170 mg/dL (75-99)
[2016-12-05 07:01] VITALS: TEMP 98.4
[2016-12-05] MEDS: DULoxetine HCL 30 MG CAPSULE.DR PO SCH (08:34)
[2016-12-05] MEDS: METOPROLOL TARTRATE 25 MG TAB PO SCH ×2 (08:35→20:02)
[2016-12-05] MEDS: metFORMIN 500 MG TAB PO SCH ×2 (08:35→17:27)
[2016-12-05] MEDS: glipiZIDE 10 MG TAB PO SCH (08:35)
[2016-12-05] MEDS: LINAGLIPTIN 5 MG TABLET PO SCH (08:35)
[2016-12-05] MEDS: PIOGLITAZONE 30 MG TAB PO SCH (08:35)
[2016-12-05] MEDS: CLOPIDOGREL 75 MG TAB PO SCH (08:35)
[2016-12-05] MEDS: ISOSORBIDE MONONITRATE ER 60 MG TAB.ER.24H PO SCH (08:35)
[2016-12-05] MEDS ORDERED: ARIPiprazole 2 MG TAB PO SCH (09:00)
[2016-12-05] MEDS: LORazepam 1 MG TAB PO PRN (10:14)
--- NOTE | 2016-12-05 10:34 | P.PN ---
Progress Note - Text Interval history: The patient is found in his room he follows me to an interview room. He states that his mood is depressed he feels anxious. We reviewed his Cymbalta and Abilify in detail in terms of the purpose and time lying to demonstrate efficacy. He has been selectively attending groups. He reports that he slept well last night but did awaken early at 5:30 but fell back to sleep. He did eat breakfast. We discussed outpatient follow-up after this visit his transportation concerns and options for housing. Mental status exam: The patient is alert he is dressed in his own clothing he has a disheveled appearance hygiene is fair. Eye contact is appropriate. He reports his mood is anxious and depressed. Affect is congruent to reported mood. He feels safe here in the hospital and describes no acute intent or plan of harming himself he describes no homicidal ideation. There is no report or evidence of psychosis. He does not appear hypomanic or manic. He remains oriented to person place and date. Plan: The patient will continue on his current medications we will titrate the Cymbalta during the course of the hospitalization and possibly the Abilify as well. Vital signs reviewed we will monitor his blood pressure. He is encouraged to fully participate in groups. Continue to monitor him for safety.
[2016-12-05 12:34] LABS: Glucose,Whole Blood 112 mg/dL (75-99)
[2016-12-05] MEDS: IBUPROFEN 400 MG TAB PO PRN (14:24)
[2016-12-05 17:13] LABS: Glucose,Whole Blood 111 mg/dL (75-99)
[2016-12-05] MEDS: ATORVASTATIN 40 MG TAB PO SCH (20:02)
[2016-12-05 20:04] VITALS: RESP 16
[2016-12-05 21:06] LABS: Basophils # (A) 0.1 k/uL (0-0.2); Basophils % (A) 1 %; CH 31.2; CHCM 34.3; Eosinophils # (A) 0.2 k/uL (0-0.7); Eosinophils % (A) 3 %; HCT 37.4 % (39.0-53.0); HDW 2.74; HGB 12.9 gm/dL (13.0-17.5); Luc # (Auto) 0.14; Luc % (Auto) 2; Lymphocytes # (A) 1.6 k/uL (1.0-4.8); Lymphocytes % (A) 27 %; MCH 31.6 pg (25.0-35.0); MCHC 34.5 g/dL (31.0-37.0); MCV 91.6 fL (80.0-100.0); Mean Platelet Volume 7.4; Monocytes # (A) 0.3 k/uL (0-1.0); Monocytes % (A) 5 %; Neutrophils # (A) 3.7 k/uL (1.3-7.7); Neutrophils % (A) 61 %; RBC 4.08 m/uL (4.30-5.90); RDW 12.8 % (11.5-15.5); WBC (Perox) 6.19
[2016-12-05 21:08] LABS: Glucose,Whole Blood 133 mg/dL (75-99)
[2016-12-05] MEDS ORDERED: cloNIDine HCL 0.2 MG TAB PO STA (21:12)
[2016-12-05 21:15] VITALS: BP 188/91; PULSE 91
[2016-12-05 21:21] LABS: ALT 33 U/L (21-72); AST 21 U/L (17-59); Alkaline Phosphatase 28 U/L (38-126); Anion Gap 12 mmol/L; Blood Urea Nitrogen 21 mg/dL (9-20); Calcium 10.2 mg/dL (8.4-10.2); Carbon Dioxide 28 mmol/L (22-30); Chloride 102 mmol/L (98-107); Glucose 124 mg/dL (74-99); Non-African American GFR(MDRD) >60 (>60 ml/min/1.73 sqM); Potassium 4.4 mmol/L (3.5-5.1); Sodium 142 mmol/L (137-145); Total Bilirubin 0.7 mg/dL (0.2-1.3); Total Protein 7.1 g/dL (6.3-8.2)
[2016-12-05 21:31] LABS: Creatine Kinase MB 1.6 ng/mL (0.0-2.4); Troponin I <0.012 ng/mL (0.000-0.034)
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
== END 2016-12-05 23:33 | disposition short-term general hospital (02) | DRG 885 ==
LOC: EC 11:10 → 3MHU 15:37
PROVIDERS: ADMIT Psychiatry & Neurology Psychiatry; ATTEND Psychiatry & Neurology Psychiatry
DX: F33.2 Major depressive disorder, recurrent severe without psychotic features (principal); R45.851 Suicidal ideations; E11.9 Type 2 diabetes mellitus without complications; F41.9 Anxiety disorder, unspecified; G40.909 Epilepsy, unspecified, not intractable, without status epilepticus; R07.9 Chest pain, unspecified; I25.10 Atherosclerotic heart disease of native coronary artery without angina pectoris; F12.90 Cannabis use, unspecified, uncomplicated; F90.9 Attention-deficit hyperactivity disorder, unspecified type; G89.29 Other chronic pain; M54.9 Dorsalgia, unspecified; K52.9 Noninfective gastroenteritis and colitis, unspecified; I10 Essential (primary) hypertension; Z79.84 Long term (current) use of oral hypoglycemic drugs; Z79.02 Long term (current) use of antithrombotics/antiplatelets; Z79.899 Other long term (current) drug therapy; Z91.19 Patient's noncompliance with other medical treatment and regimen; Z91.5 Personal history of self-harm; Z87.820 Personal history of traumatic brain injury; Z87.891 Personal history of nicotine dependence
CPT/HCPCS: 80053; 80306; 81001; 82075; 82553; 83036; 84443; 84484; 85025; 93005; 99285

== ENCOUNTER 2016-12-05 22:30 | Inpatient (IN) | payer MEDICARE, OTHER ==
[2016-12-05 23:57] VITALS: BMI 28.1
[2016-12-06] MEDS ORDERED: MORPHINE SULFATE 4 MG/ML SYRINGE IV PRN (00:14)
[2016-12-06] MEDS ORDERED: ONDANSETRON 4 MG/2 ML VIAL IVP PRN (00:14)
[2016-12-06] MEDS ORDERED: NALOXONE 0.4 MG/ML 1 ML VIAL IV PRN (00:14)
[2016-12-06] MEDS ORDERED: DOCUSATE 100 MG CAP PO PRN (00:14)
[2016-12-06] MEDS ORDERED: MAG HYDROX/AL HYDROX/SIMETH 30 ML CUP PO PRN (00:14)
[2016-12-06] MEDS ORDERED: NON-FORMULARY DRUG (Acetaminophen [Tylenol 8 Hour] 650 MG) PO PRN (00:30)
[2016-12-06] MEDS ORDERED: ZIPRASIDONE 20 MG VIAL IM PRN (00:38)
[2016-12-06] MEDS: ACETAMINOPHEN TAB 325 MG TAB PO PRN ×4 (00:49→23:28)
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
[2016-12-06] MEDS: LORazepam 1 MG TAB PO PRN ×2 (03:56→19:58)
[2016-12-06] MEDS: metFORMIN 500 MG TAB PO SCH ×2 (06:33→17:14)
[2016-12-06] MEDS: PANTOPRAZOLE 40 MG TABLET PO SCH (06:33)
[2016-12-06] MEDS: glipiZIDE 10 MG TAB PO SCH (06:34)
[2016-12-06 07:05] LABS: Creatine Kinase 87 U/L (55-170)
[2016-12-06 07:18] LABS: Creatine Kinase MB 1.2 ng/mL (0.0-2.4); Troponin I <0.012 ng/mL (0.000-0.034)
[2016-12-06] MEDS: CLOPIDOGREL 75 MG TAB PO SCH (07:50)
[2016-12-06] MEDS: ISOSORBIDE MONONITRATE ER 60 MG TAB.ER.24H PO SCH (07:50)
[2016-12-06] MEDS: DULoxetine HCL 30 MG CAPSULE.DR PO SCH (07:50)
[2016-12-06] MEDS: ARIPiprazole 2 MG TAB PO SCH (07:50)
[2016-12-06] MEDS: PIOGLITAZONE 30 MG TAB PO SCH (07:50)
[2016-12-06] MEDS: LINAGLIPTIN 5 MG TABLET PO SCH (07:50)
[2016-12-06] MEDS ORDERED: METOPROLOL TARTRATE 25 MG TAB PO SCH (09:00)
--- NOTE | 2016-12-06 09:08 | P.PN ---
Subjective Principal diagnosis: Chest pain Patient is 56 years old transferred from psych unit with acute onset of typical chest pain and unstable angina, patient is extremely high risk due to his history of coronary artery disease with multiple stents placement, patient was transferred to the telemetry floor he has no issues on telemetry his EKG was benign and unremarkable, cardiac markers were negative and this morning I saw him and he was having no chest pain was feeling "fine", he denies shortness of breath headache dizziness abdominal pain and blurry vision. Objective - Vital Signs Vital signs: Vital Signs Temp 97.3 F L 12/06/16 04:04 Pulse 77 12/06/16 04:04 Resp 16 12/06/16 04:04 BP 169/85 12/06/16 04:04 Pulse Ox 96 12/06/16 04:04 Intake & Output 12/05/16 12/06/16 12/06/16 18:59 06:59 18:59 Intake Total 100 Balance 100 Weight 91.5 kg Intake: Oral 100 Other: Voiding Method Toilet # Voids 1 - Constitutional General appearance: Present: no acute distress - EENT Eyes: Present: PERRLA, dentition normal, normal appearance ENT: Present: hearing grossly normal, normal oropharynx. Absent: tonsillar swelling Ears: bilateral: normal - Neck Neck: Present: normal ROM. Absent: lymphadenopathy, rigidity, thyromegaly Carotids: bilateral: upstroke normal Thyroid: bilateral: normal size - Respiratory Respiratory: bilateral: CTA, negative: dullness, rales, rhonchi, wheezing, prolonged expiration - Cardiovascular Rhythm: regular Heart sounds: normal: S1, S2 Abnormal Heart Sounds: Absent: systolic murmur, diastolic murmur, S3 Gallop, S4 Gallop - Gastrointestinal General gastrointestinal: Present: normal bowel sounds, scaphoid, soft. Absent : distended, rigid, tenderness - Integumentary Integumentary: Present: normal, normal turgor. Absent: cellulitis, jaundiced, rash - Neurologic Neurologic: Present: CNII-XII intact - Musculoskeletal Musculoskeletal: Present: gait normal, strength equal bilaterally - Psychiatric Psychiatric: Present: A&O x's 3, appropriate affect - Allied health notes Allied health notes reviewed: nursing Assessment and Plan (1) Chest pain Narrative/Plan: unstable angina : No further chest pain, negative EKG as well as troponins, my plan is consult cardiology, control his blood pressure, increase his Lopressor to achieve adequate blood pressure control. Continue aspirin 81 mg and statins Status: Acute (2) Hypertension Narrative/Plan: Continue his metoprolol and increased doses to 50 mg and added by mouth clonidine and IV metoprolol as needed Status: Chronic (3) Depression Narrative/Plan: Once the patient is cleared by cardiology he can be discharged back to psych unit Status: Acute (4) Coronary artery disease Narrative/Plan: Patient was a known history of coronary artery disease with history of stentS placement treatment as per #1 Status: Chronic (5) Diabetes mellitus type 2 in nonobese Narrative/Plan: Continue metformin then Accu-Cheks and place him on sliding scale insulin will place him on 1800 ADA diet Status: Chronic (6) Suicidal ideation Narrative/Plan: Suicide precautions we will resume psychiatric medication Status: Acute (7) Dyslipidemia Narrative/Plan: We will resume his statins obtain fasting lipids in morning Status: Chronic Time with Patient: Greater than 30
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
[2016-12-06 13:00] LABS: Creatine Kinase 74 U/L (55-170)
[2016-12-06 13:13] LABS: Creatine Kinase MB 1.2 ng/mL (0.0-2.4); Troponin I <0.012 ng/mL (0.000-0.034)
[2016-12-06] MEDS: METOPROLOL TARTRATE 5 MG/5 ML VIAL IVP SCH (16:37)
[2016-12-06 16:54] LABS: Glucose,Whole Blood 128 mg/dL (75-99)
[2016-12-06] MEDS: ATORVASTATIN 40 MG TAB PO SCH (19:53)
[2016-12-06] MEDS: METOPROLOL TARTRATE 50 MG TAB PO SCH (19:53)
[2016-12-06] MEDS: IBUPROFEN 400 MG TAB PO PRN (19:54)
[2016-12-06 20:46] LABS: Hemoglobin A1C 8.3 % (4.2-6.1)
[2016-12-06 21:26] LABS: Glucose,Whole Blood 189 mg/dL (75-99)
[2016-12-06] MEDS: cloNIDine HCL 0.2 MG TAB PO PRN (23:41)
[2016-12-07 05:09] LABS: Glucose,Whole Blood 222 mg/dL (75-99)
[2016-12-07 05:09] LABS: Glucose,Whole Blood 118 mg/dL (75-99)
[2016-12-07] MEDS: DULoxetine HCL 30 MG CAPSULE.DR PO SCH (06:20)
[2016-12-07] MEDS: CLOPIDOGREL 75 MG TAB PO SCH (06:20)
[2016-12-07] MEDS: ISOSORBIDE MONONITRATE ER 60 MG TAB.ER.24H PO SCH (06:21)
[2016-12-07] MEDS: ARIPiprazole 2 MG TAB PO SCH (06:21)
[2016-12-07] MEDS: METOPROLOL TARTRATE 50 MG TAB PO SCH ×2 (06:21→20:49)
[2016-12-07 06:26] LABS: Glucose,Whole Blood 193 mg/dL (75-99)
[2016-12-07] MEDS ORDERED: AMINOPHYLLINE 500 MG/20 ML VIAL IV PRN (09:11)
[2016-12-07] MEDS ORDERED: REGADENOSON 0.4 MG/5 ML SYRINGE IV ONE (09:11)
--- NOTE | 2016-12-07 09:55 | P.PN ---
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 Patient was admitted to the psych unit due to suicidal ideation and depression. However, patient experienced features of typical chest pain responded to nitro along with elevated blood pressure for which she was transferred to cardiac telemetry floor for further workup including ruling out acute coronary syndrome. Patient is seen today denies any more episodes of chest pain he is able to walk to the bathroom with no issues patient also try to walking the hallways and he had no trouble breathing or any chest pain. Patient's systolic blood pressure is still not well-controlled however; Patient denies any headaches, changes in vision, or any focal neurologic deficits. Patient cardiac enzymes are unremarkable, cardiac monitoring is showing normal sinus rhythm with a heart rate in the 60s. I discussed the case with cardiology will await further recommendations pending their evaluation. Objective - Vital Signs Vital signs: Vital Signs Temp 97.2 F L 12/07/16 03:54 Pulse 64 12/07/16 03:54 Resp 16 12/07/16 03:54 BP 143/81 12/07/16 03:54 Pulse Ox 98 12/07/16 03:54 Intake & Output 12/06/16 12/07/16 12/07/16 18:59 06:59 18:59 Intake Total 760 Balance 760 Weight 90.1 kg Intake: Oral 760 Other: Voiding Method Toilet # Voids 1 Constitutional: vital signs stable, Not in acute distress, pleasant, conversant Lungs: Clear to auscultation bilaterally, no wheezes, normal respiratory effort no use of accessory muscles Cardiovascular: Regular rate and rhythm, no murmurs, no gallops, no rubs, no peripheral edema Extremities: No digital cyanosis or clubbing , no calf muslce tenderness Psych: Alert, oriented to place, person and time, appropriate affect, fair judgment - Labs Labs: Abnormal Lab Results - Last 24 Hours (Table) 12/06/16 12/06/16 12/06/16 Range/Units 05:47 05:57 11:46 POC Glucose (mg/dL) 222 H 118 H (75-99) mg/dL Hemoglobin A1c 8.3 H (4.2-6.1) % 12/06/16 12/06/16 12/07/16 Range/Units 16:41 21:24 06:25 POC Glucose (mg/dL) 128 H 189 H 193 H (75-99) mg/dL Hemoglobin A1c (4.2-6.1) % Assessment and Plan (1) Accelerated hypertension Narrative/Plan: Currently asymptomatic Continue with metoprolol, imdur clonidin PRN Add lisinopril start low dose at 5 mg we'll adjust as needed (this will be beneficial with his underlying history of diabetes and acute coronary syndrome) Monitor vital signs closely Status: Acute (2) Unstable angina Narrative/Plan: History of coronary artery disease status post stenting, most recent stress test done in August 2016 was negative, patient also reports left heart cath done a month ago which did not show any significant occlusions and his doctor recommended medical therapy, patient sees Dr. 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
[2016-12-07] MEDS: LISINOPRIL 5 MG TAB PO SCH (09:58)
[2016-12-07] MEDS: metFORMIN 500 MG TAB PO SCH ×2 (09:59→16:35)
[2016-12-07] MEDS: PANTOPRAZOLE 40 MG TABLET PO SCH (09:59)
[2016-12-07] MEDS: PIOGLITAZONE 30 MG TAB PO SCH (09:59)
[2016-12-07] MEDS: glipiZIDE 10 MG TAB PO SCH (09:59)
[2016-12-07] MEDS: LINAGLIPTIN 5 MG TABLET PO SCH (09:59)
[2016-12-07] MEDS: HEPARIN SODIUM,PORCINE 5,000 UNIT/ML 1 ML VIAL SQ SCH ×2 (10:00→16:36)
--- NOTE | 2016-12-07 11:44 | NM ---
EXAMINATION TYPE: NM stress lexiscan cardiolite DATE OF EXAM: 12/07/2016 COMPARISON: NONE HISTORY: Precordial chest pain. TECHNIQUE: After the intravenous administration of 9.88 mCi Tc 99m Sestamibi - Cardiolite resting SP ECT images acquired 45 minutes post injection. The patient received 0.4mg Lexiscan, 27.2 mCi Tc 99m Sestamibi - Stress images obtained [address] injection FINDINGS: Review of stress and rest SPECT images demonstrates decreased perfusion which appears to worsen upon stress imaging involving the inferior wall. This may reflect an area of remote insult with a superimp osed stress-induced ischemia. In addition there is a vague area of decreased perfusion involving the apical lateral wall on the stress images also suggesting an additional area of stress-induced ischemi a. Gated analysis shows normal wall motion with an estimated left ventricular ejection fraction of 54 %. IMPRESSION: I cannot exclude stress-induced ischemia as noted above.
--- NOTE | 2016-12-07 12:02 | PN ---
DATE OF SERVICE: 12/06/2016 INTERVAL HISTORY: The patient is found lying in bed. He was transferred from Mental Health Unit to [facility] with the complaint of chest pain. He is being worked up and has been seen by Cardiology. In reviewing notes so far, no acute process was discovered. The patient reports that he is no longer experiencing any chest pain. We have been continuing him on Cymbalta 30 mg daily, Abilify 2 mg daily. He has been stabilized on the Mental Health Unit. He endorses no suicidal ideation, intent or plan. MENTAL STATUS EXAM: The patient is alert. He is dressed in hospital attire. Eye contact is appropriate. Speech is fluent, spontaneous, nonpressured. He is pleasant and cooperative. He reports his elvin is better. He denies having any suicidal or homicidal ideation. He endorses no auditory or visual hallucinations or specific delusions. There is no evidence of psychosis. He demonstrates no hypomanic or manic symptoms. He is oriented to person, place and date. There is no verbal or physical aggressiveness. Insight and judgment improved. He demonstrates no abnormal involuntary movements. IMPRESSIONS: Major depressive disorder, recurrent, cannabis use disorder, alcohol use disorder. PLAN: The patient will continue on the Cymbalta 30 mg daily, Abilify 2 mg daily. It is likely that we will be able to discharge him from the hospital once medically cleared as he does not appear to require further treatment on the Mental Health Unit. Social work from the Mental Health Unit will be asked to contact ( ) to provide follow up information as we plan to have him connect with [facility] upon discharge. He should be continued on Cymbalta 60 mg daily, Abilify 2 mg daily. It is not our plan to discharge him home on Ativan. We had discussed having him attend inpatient dependency treatment for his alcohol use disorder, but he does not wish to participate. I will re-evaluate the patient again tomorrow on this floor prior to discharge. MARVIN
[2016-12-07 12:05] LABS: Glucose,Whole Blood 173 mg/dL (75-99)
--- NOTE | 2016-12-07 13:45 | EST ---
DATE OF SERVICE: 12/07/2016 TYPE OF REPORT: LEXISCAN CARDIOLITE STRESS TEST INDICATION: Chest pain. BASELINE HEART RATE: 63 BASELINE BLOOD PRESSURE: 154/84 MAXIMUM HEART RATE: 89 MAXIMUM BLOOD PRESSURE: 159/86 85% MPHR: 138 100% MPHR: 162 METS: - MAXIMUM STAGE REACHED: - TOTAL EXERCISE TIME: - Baseline EKG revealed a normal sinus rhythm without significant ST-ST changes. With Lexiscan administration, heart rate changed from 63 to 89 beats per minute and blood pressure changed from 154/84 to 159/86. EKG was unchanged and patient did not have any significant symptoms. By EKG criteria, this is an unremarkable Lexiscan stress test. The nuclear scan results, which are more pertinent, will be reported by the radiologist. MARVIN
[2016-12-07] MEDS: IBUPROFEN 400 MG TAB PO PRN (14:30)
[2016-12-07] MEDS ORDERED: NITROGLYCERIN SL TABS 0.4 MG TAB SUBLINGUAL PRN (14:56)
[2016-12-07] MEDS ORDERED: ATORVASTATIN 80 MG TAB PO STA (14:56)
[2016-12-07] MEDS ORDERED: SODIUM CHLORIDE 0.9% 1,000 ML in EMPTY BAG 1 BAG IV ONE (14:56)
[2016-12-07] MEDS ORDERED: ASPIRIN 325 MG TAB PO STA (14:56)
[2016-12-07] MEDS ORDERED: ALPRAZolam 0.5 MG TAB PO PRN (14:56)
[2016-12-07] MEDS ORDERED: ALPRAZolam 0.25 MG TAB PO PRN (14:56)
--- NOTE | 2016-12-07 15:56 | P.PN ---
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 During his stay, he was experiencing chest discomfort, as a pressure across the chest, with some radiation to the neck as well as the jaw, and without any associated symptoms of shortness of breath, sweating, dizziness or lightheadedness or syncope.The EKG showed sinus rhythm with no significant ST or T-wave abnormalities. He underwent one set of cardiac enzyme came in to be unremarkable.Currently the patient is pain free. Guillermina scan stress test revealed a small area of questionable reversibility. For this reason patient was advised to undergo cardiac catheterization. He did have a cardiac catheterization performed one month ago at [facility] that she did not reveal any significant obstructive coronary artery disease. IFR was also performed at that time which did not come back to be significant. But because of the abnormal stress test findings patient has been advised to undergo cardiac catheterization tomorrow. This will be performed tomorrow by Dr. Kaye. Objective - Vital Signs Vital signs: Vital Signs Temp 97.6 F 12/07/16 12:00 Pulse 67 12/07/16 12:00 Resp 18 12/07/16 12:00 BP 140/92 12/07/16 12:00 Pulse Ox 99 12/07/16 12:00 Intake & Output 12/06/16 12/07/16 12/07/16 18:59 06:59 18:59 Intake Total 760 Balance 760 Weight 90.1 kg Intake: Oral 760 Other: Voiding Method Toilet # Voids 1 - Exam PHYSICAL EXAMINATION: HEENT: Head is atraumatic, normocephalic. Pupils equal, round. Neck is supple. There is no elevated jugular venous pressure. HEART EXAMINATION: Heart S1, S2 normal. No murmur or gallop heard. CHEST EXAMINATION: Lungs are clear to auscultation and precussion. No chest wall tenderness is noted on palpation or with deep breathing. ABDOMEN: Soft, nontender. Bowel sounds are heard. No organomegaly noted. EXTREMITIES: 2+ peripheral pulses with no evidence of peripheral edema and no calf tenderness noted. NEUROLOGIC patient is awake, alert and oriented -3. . - Labs Labs: Abnormal Lab Results - Last 24 Hours (Table) 12/06/16 12/06/16 12/06/16 Range/Units 05:47 05:57 11:46 POC Glucose (mg/dL) 222 H 118 H (75-99) mg/dL Hemoglobin A1c 8.3 H (4.2-6.1) % 12/06/16 12/06/16 12/07/16 Range/Units 16:41 21:24 06:25 POC Glucose (mg/dL) 128 H 189 H 193 H (75-99) mg/dL Hemoglobin A1c (4.2-6.1) % 12/07/16 Range/Units 11:36 POC Glucose (mg/dL) 173 H (75-99) mg/dL Hemoglobin A1c (4.2-6.1) % Assessment and Plan (1) Chest pain Status: Acute (2) Positive cardiac stress test Status: Acute (3) CAD (coronary artery disease) Status: Acute (4) Diabetes Status: Acute (5) HTN (hypertension) Status: Acute (6) Hyperlipemia Status: Acute Plan: Patient will be scheduled to undergo cardiac catheterization tomorrow with Dr. Kaye. Further recommendations will be based on those findings and patient's clinical course. DNP note has been reviewed, I agree with a documented findings and plan of care. Patient was seen and examined.
[2016-12-07] MEDS: ACETAMINOPHEN TAB 325 MG TAB PO PRN ×2 (16:35→20:58)
[2016-12-07 17:14] LABS: Glucose,Whole Blood 121 mg/dL (75-99)
[2016-12-07] MEDS: ATORVASTATIN 40 MG TAB PO SCH (20:49)
[2016-12-07 21:01] LABS: Glucose,Whole Blood 124 mg/dL (75-99)
[2016-12-07] MEDS: LORazepam 1 MG TAB PO PRN (21:52)
[2016-12-08] MEDS: HEPARIN SODIUM,PORCINE 5,000 UNIT/ML 1 ML VIAL SQ SCH ×4 (00:05→23:51)
[2016-12-08] MEDS: NITROGLYCERIN SL TABS 0.4 MG TAB SUBLINGUAL PRN ×2 (04:07→04:11)
[2016-12-08] MEDS: ACETAMINOPHEN TAB 325 MG TAB PO PRN ×3 (04:13→21:38)
[2016-12-08 05:54] LABS: Glucose,Whole Blood 177 mg/dL (75-99)
[2016-12-08 06:14] LABS: Basophils # (A) 0.1 k/uL (0-0.2); Basophils % (A) 1 %; CHCM 33.9; Eosinophils # (A) 0.2 k/uL (0-0.7); Eosinophils % (A) 4 %; HCT 35.4 % (39.0-53.0); HGB 11.4 gm/dL (13.0-17.5); Luc % (Auto) 3; Lymphocytes # (A) 1.3 k/uL (1.0-4.8); Lymphocytes % (A) 31 %; MCH 30.5 pg (25.0-35.0); MCHC 32.1 g/dL (31.0-37.0); MCV 94.9 fL (80.0-100.0); Mean Platelet Volume 8.1; Monocytes # (A) 0.3 k/uL (0-1.0); Monocytes % (A) 7 %; Neutrophils # (A) 2.3 k/uL (1.3-7.7); Neutrophils % (A) 55 %; RBC 3.73 m/uL (4.30-5.90); WBC 4.2 k/uL (3.8-10.6); WBC (Perox) 4.27
[2016-12-08] MEDS: CLOPIDOGREL 75 MG TAB PO SCH (06:41)
[2016-12-08] MEDS: METOPROLOL TARTRATE 50 MG TAB PO SCH ×2 (06:41→21:38)
[2016-12-08 06:42] LABS: Anion Gap 10 mmol/L; Blood Urea Nitrogen 28 mg/dL (9-20); Calcium 9.3 mg/dL (8.4-10.2); Carbon Dioxide 21 mmol/L (22-30); Chloride 107 mmol/L (98-107); Glucose 170 mg/dL (74-99); Non-African American GFR(MDRD) >60 (>60 ml/min/1.73 sqM); Potassium 4.3 mmol/L (3.5-5.1); Sodium 138 mmol/L (137-145)
[2016-12-08] MEDS: ARIPiprazole 2 MG TAB PO SCH (06:42)
[2016-12-08] MEDS: LISINOPRIL 5 MG TAB PO SCH (06:42)
[2016-12-08] MEDS: DULoxetine HCL 30 MG CAPSULE.DR PO SCH (06:42)
[2016-12-08] MEDS: PANTOPRAZOLE 40 MG TABLET PO SCH (06:42)
[2016-12-08] MEDS: ISOSORBIDE MONONITRATE ER 60 MG TAB.ER.24H PO SCH (06:43)
[2016-12-08] MEDS ORDERED: LIDOCAINE 2% INJ 20 MG/ML (20 ML MDV) ONE (10:12)
[2016-12-08] MEDS ORDERED: MIDAZOLAM 2 MG/2 ML VIAL ONE (10:12)
[2016-12-08] MEDS ORDERED: HEPARIN SODIUM 1,000 UN/ML (10ML VL) ONE (10:12)
[2016-12-08] MEDS ORDERED: VERAPAMIL 2.5 MG/ML 2 ML AMP ONE (10:13)
[2016-12-08] MEDS ORDERED: SODIUM CHLORIDE 0.9% 1,000 ML IV ONE (10:19)
--- NOTE | 2016-12-08 10:21 | P.PN ---
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 Rojas in [place], [place]), and history of diabetes mellitus, hypertension. Patient was admitted to the psych unit due to suicidal ideation and depression. However, patient experienced features of typical chest pain responded to nitro along with elevated blood pressure for which she was transferred to cardiac telemetry floor for further workup including ruling out acute coronary syndrome. Patient is seen today, she denies any further episodes of chest pain or shortness of breath he is able to ambulate freely with no limitations. Patient denies any headache or changes in his vision or any focal neurologic deficits. Cardiac monitoring shows normal sinus rhythm. Based on the results of the Lexiscan performed yesterday cardiology recommended to perform left heart cath today for further evaluation. Objective - Vital Signs Vital signs: Vital Signs Temp 97 F L 12/08/16 07:37 Pulse 75 12/08/16 07:37 Resp 16 12/08/16 07:37 BP 151/72 12/08/16 07:37 Pulse Ox 98 12/08/16 07:37 Intake & Output 12/07/16 12/08/16 12/08/16 18:59 06:59 18:59 Intake Total 1070.8 Balance 1070.8 Weight 90.4 kg Intake: IV 720.8 Sodium Chloride 0.9% 1, 720.8 000 ml In Empty Bag 1 bag @ 1 ML/KG/HR 90.1 mls/hr IV .[id number] [facility] Rx#: [id number] Oral 350 Other: Voiding Method Toilet # Voids 1 Constitutional: vital signs stable, Not in acute distress, pleasant, conversant Lungs: Clear to auscultation bilaterally, no wheezes, normal respiratory effort no use of accessory muscles Cardiovascular: Regular rate and rhythm, no murmurs, no gallops, no rubs, no peripheral edema Extremities: No digital cyanosis or clubbing, peripheral pulses palpable and equal over bilateral radial arteries and dorsalis pedis arteries, no calf muscle tenderness Psych: Alert, oriented to place, person and time Labs were reviewed - Labs CBC & Chem 7: 12/08/16 05:53 12/08/16 05:53 Labs: Abnormal Lab Results - Last 24 Hours (Table) 12/07/16 12/07/16 12/07/16 Range/Units 11:36 16:44 21:00 RBC (4.30-5.90) m/uL Hgb (13.0-17.5) gm/dL Hct (39.0-53.0) % Plt Count (150-450) k/uL Carbon Dioxide (22-30) mmol/L BUN (9-20) mg/dL Glucose (74-99) mg/dL POC Glucose (mg/dL) 173 H 121 H 124 H (75-99) mg/dL 12/08/16 12/08/16 12/08/16 Range/Units 05:52 05:53 05:53 RBC 3.73 L (4.30-5.90) m/uL Hgb 11.4 L (13.0-17.5) gm/dL Hct 35.4 L (39.0-53.0) % Plt Count 136 L (150-450) k/uL Carbon Dioxide 21 L (22-30) mmol/L BUN 28 H (9-20) mg/dL Glucose 170 H (74-99) mg/dL POC Glucose (mg/dL) 177 H (75-99) mg/dL Assessment and Plan (1) Accelerated hypertension Narrative/Plan: Currently asymptomatic , blood pressure readings overall are improving Continue with metoprolol, imdur clonidin PRN for systolic blood pressure more than 170 Continue with lisinopril at 5 mg Monitor vital signs closely Patient would probably benefit from further adjustments of his medication dosing based on overall blood pressure readings today and results of left heart cath Status: Acute (2) Unstable angina Narrative/Plan: History of coronary artery disease status post stenting, most recent stress test done in August 2016 was negative, patient also reports left heart cath done a month ago which did not show any significant occlusions and his doctor recommended medical therapy, patient sees Dr. Rojas for cardiology at [place] Chest pain has resolved. Continue with aspirin and Plavix, statin, beta paulino Stress test performed yesterday was concerning for reversible ischemia Patient is planned to undergo left heart cath today Status: Acute (3) Depression Narrative/Plan: Management per psych Status: Chronic (4) Suicidal ideation Narrative/Plan: Currently patient denies suicidal ideation, per psychiatry management Status: Resolved (5) Diabetes mellitus type 2 in nonobese Narrative/Plan: Blood sugar controlled with oral hypoglycemics Blood sugar poorly controlled at home with A1c of 8.3% Status: Chronic (6) Hyperlipidemia Narrative/Plan: Continue statin Status: Acute (7) Anemia Narrative/Plan: mild anemia I recommended to the patient OP follow up with PCP, and consideration for age appropriate cancer screening including, but not limited to, Colonoscopy Status: Chronic (8) DVT prophylaxis Narrative/Plan: Heparin subcu for DVT prophylaxis Status: Acute
[2016-12-08] MEDS ORDERED: MIDAZOLAM 2 MG/2 ML VIAL IV ONE (10:40)
[2016-12-08] MEDS ORDERED: LIDOCAINE 2% INJ 20 MG/ML SQ ONE (10:44)
[2016-12-08] MEDS: VERAPAMIL SYRINGE (5 MG/10 ML) INTRAARTER ONE ×2 (10:47→11:07)
[2016-12-08] MEDS ORDERED: IOHEXOL 350 MG/ML 125ML BOTTLE INJ ONE (11:07)
[2016-12-08] MEDS ORDERED: RX INFO: IV CONTRAST WAS GIVEN 1 EACH MISC MISCELLANE PRN (11:14)
[2016-12-08] MEDS ORDERED: SODIUM CHLORIDE 0.9% 1,000 ML IV SCH (11:15)
[2016-12-08] MEDS: PIOGLITAZONE 30 MG TAB PO SCH (12:05)
[2016-12-08] MEDS: glipiZIDE 10 MG TAB PO SCH (12:05)
[2016-12-08 12:06] LABS: Glucose,Whole Blood 131 mg/dL (75-99)
[2016-12-08] MEDS: LINAGLIPTIN 5 MG TABLET PO SCH (12:06)
[2016-12-08] MEDS: metFORMIN 500 MG TAB PO SCH ×2 (12:06→17:24)
--- NOTE | 2016-12-08 13:51 | PCN ---
DATE OF SERVICE: 12/08/2016 PERFORMING PHYSICIAN: Andreas Herrera MD, Industrial Garage Servicer PROCEDURE PERFORMED: 1. Selective right and left coronary angiogram. 2. Left heart catheterization. INDICATIONS: This is a pleasant 66-year-old gentleman who is known to have coronary artery disease, who was admitted to the hospital with chest discomfort. He continues to have ongoing chest discomfort during his hospitalization and he underwent myocardial perfusion imaging stress test and that showed ischemia involving the inferolateral wall the LV. He was brought today to undergo heart catheterization. APPROACH: Right radial artery. COMPLICATIONS: None. LEVEL OF SEDATION: Moderate with sedation length of 30 minutes. PROCEDURE DESCRIPTION: After obtaining informed consent the patient was brought to the Cardiac Hvac Maintenance Technician. The right radial artery was cannulated using micropuncture technique. The micropuncture wire passed easily and then I placed a 6-Latv[place] sheath in the right radial artery. Subsequently I did give the patient 2 mg of Verapamil IA and 3000 units of heparin IV. I did after that selective right and left coronary angiogram using JR4 and JL3 catheters. After that I did left heart catheterization without LV gram. The left heart catheterization was performed using the JR4 catheter which flipped into LV and then I did pull back after flushing the catheter. The procedure was completed without any complications. SELECTIVE CORONARY ANGIOGRAM: 1. The right coronary artery is a large caliber vessel and is a dominant vessel. I has mild diffuse disease in the proximal, mid, and distal portions. Just before the bifurcation into PDA and PLV branches, the PDA seems to be occluded and the PLV has mild to moderate diffuse disease. The PDA branch fills by collaterals from the left coronary system. 2. The left main is angiographically normal. It bifurcates into the left circumflex and left anterior descending artery. 3. The left circumflex is a large caliber vessel and is a nondominant vessel. The proximal circumflex has tubular lesion that seems to be in the range of 60% . The mid-circ is stented with in-stent re-stenosis. The circ distally appeared to be angiographically normal. 4. The left anterior descending artery: The proximal LAD appeared to be angiographically normal. The mid-LAD appeared to have mild disease only and LAD distally appeared to be angiographically normal. The LAD gives rise into two diagonal branches that seems to be angiographically normal. HEMODYNAMICS: The left ventricular end-diastolic pressure was 18 to 20 mmHg and no gradient was identified across the aortic valve. CONCLUSION: 1. Occluded PDA branch of the right coronary artery seems to fill by collateral from the left coronary system. 2. Normal left main coronary artery. 3. Intermediate disease involving the proximal left circumflex that seems to be in the range of 60%. 4. Normal left anterior descending artery. POSTPROCEDURE MANAGEMENT: 1. Maximize medical treatment. 2. Follow up with patient. MARVIN
[2016-12-08] MEDS: cloNIDine HCL 0.2 MG TAB PO PRN (17:24)
[2016-12-08 21:04] LABS: Glucose,Whole Blood 138 mg/dL (75-99)
[2016-12-08] MEDS: ATORVASTATIN 40 MG TAB PO SCH (21:38)
[2016-12-09 06:10] LABS: Glucose,Whole Blood 113 mg/dL (75-99)
[2016-12-09] MEDS: glipiZIDE 10 MG TAB PO SCH (07:06)
[2016-12-09] MEDS: metFORMIN 500 MG TAB PO SCH ×4 (07:06→19:31)
[2016-12-09] MEDS: PANTOPRAZOLE 40 MG TABLET PO SCH (07:06)
[2016-12-09] MEDS: HEPARIN SODIUM,PORCINE 5,000 UNIT/ML 1 ML VIAL SQ SCH ×3 (08:47→22:47)
[2016-12-09] MEDS: ARIPiprazole 2 MG TAB PO SCH (08:47)
[2016-12-09] MEDS: ISOSORBIDE MONONITRATE ER 60 MG TAB.ER.24H PO SCH (08:48)
[2016-12-09] MEDS: LISINOPRIL 5 MG TAB PO SCH (08:48)
[2016-12-09] MEDS: METOPROLOL TARTRATE 50 MG TAB PO SCH ×2 (08:48→20:42)
[2016-12-09] MEDS: CLOPIDOGREL 75 MG TAB PO SCH (08:48)
[2016-12-09] MEDS: LINAGLIPTIN 5 MG TABLET PO SCH (08:48)
[2016-12-09] MEDS: NITROGLYCERIN SL TABS 0.4 MG TAB SUBLINGUAL PRN (10:13)
[2016-12-09 11:21] LABS: Glucose,Whole Blood 108 mg/dL (75-99)
[2016-12-09] MEDS ORDERED: ALPRAZolam 0.25 MG TAB PO PRN (11:24)
[2016-12-09] MEDS ORDERED: ALPRAZolam 0.5 MG TAB PO PRN (11:24)
[2016-12-09] MEDS ORDERED: SODIUM CHLORIDE 0.9% 1,000 ML in EMPTY BAG 1 BAG IV ONE (11:24)
[2016-12-09] MEDS ORDERED: NITROGLYCERIN SL TABS 0.4 MG TAB SUBLINGUAL PRN ×2 (11:24→13:46)
[2016-12-09] MEDS ORDERED: ASPIRIN 325 MG TAB PO STA (11:29)
[2016-12-09] MEDS ORDERED: ATORVASTATIN 80 MG TAB PO STA (11:29)
--- NOTE | 2016-12-09 11:49 | P.PN ---
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 Rojas in [place], [place]), and history of diabetes mellitus, hypertension. Patient was admitted to the psych unit due to suicidal ideation and depression. However, patient experienced features of typical chest pain responded to nitro along with elevated blood pressure for which she was transferred to cardiac telemetry floor for further workup including ruling out acute coronary syndrome. Patient is seen today, He denies any events overnight or any chest pain or shortness of breath since his procedure yesterday. He tolerated procedure well, no bleeding, swelling or pain at site of access (right wrist). patient was encouraged to ambulate in the hallways to see if that would cause any chest pain. Interval exam, it seems like patient has complained of central chest pain after walking in the hallways, that has resolved with SL nitro and rest. case discussed with cardiology , will await further feedback regarding final plan to wether to place a new stent or no. web press operator helper offset shows normal sinus rhythm in the 60s Objective - Vital Signs Vital signs: Vital Signs Temp 97.2 F L 12/09/16 08:00 Pulse 73 12/09/16 10:35 Resp 18 12/09/16 10:35 BP 133/73 12/09/16 10:35 Pulse Ox 98 12/09/16 10:35 Intake & Output 12/08/16 12/09/16 12/09/16 18:59 06:59 18:59 Intake Total 50 1600 Balance 50 1600 Weight 90.2 kg Intake: IV 50 1600 Sodium Chloride 0.9% 1, 1600 000 ml @ 100 mls/hr IV . Q10H [facility] Rx#:[id number] Other: Voiding Method Toilet Toilet Constitutional: vital signs stable, Not in acute distress, pleasant, conversant Lungs: Clear to auscultation bilaterally, normal respiratory effort no use of accessory muscles Cardiovascular: Regular rate and rhythm, no murmurs, no gallops, no rubs, no peripheral edema Extremities: No digital cyanosis or ischemia, rigt wrist access site with no bleeding, bruising, swelling, or bruit. peripheral pulses palpable and equal over bilateral radial arteries , no calf muscle tenderness Psych: Alert, oriented to place, person and time labs ordered left heart cath results reviewed , intermediate disease of left circumflex art. web press operator helper offset showing NSR with HR in the 60s - Labs CBC & Chem 7: 12/08/16 05:53 12/08/16 05:53 Labs: Abnormal Lab Results - Last 24 Hours (Table) 12/08/16 12/08/16 12/09/16 Range/Units 11:49 21:03 06:09 POC Glucose (mg/dL) 131 H 138 H 113 H (75-99) mg/dL Assessment and Plan (1) Accelerated hypertension Narrative/Plan: blood pressure better controlled now continue with current medications, metoprolol, imdur, and lisinopril discontinue PRN clonidine Monitor vital signs closely Status: Resolved (2) Unstable angina Narrative/Plan: History of coronary artery disease status post stenting, most recent stress test done in August 2016 was negative, patient also reports left heart cath done a month ago which did not show any significant occlusions and his doctor recommended medical therapy, patient sees Dr. Rojas for cardiology at [place] Continue with aspirin and Plavix, statin, beta paulino left heart cath showed intermediate disease in the proximal left circumflex art. due to recurrent chest pain today, cardiology is considering inserting a stent SL nitro prn Status: Acute (3) Depression Narrative/Plan: Management per psych Status: Chronic (4) Suicidal ideation Narrative/Plan: Currently patient denies suicidal ideation, per psychiatry management Status: Resolved (5) Diabetes mellitus type 2 in nonobese Narrative/Plan: Blood sugar controlled with oral hypoglycemics Blood sugar poorly controlled at home with A1c of 8.3% Status: Chronic (6) Hyperlipidemia Narrative/Plan: Continue statin Status: Acute (7) Anemia Narrative/Plan: mild anemia I recommended to the patient OP follow up with PCP, and consideration for age appropriate cancer screening including, but not limited to, Colonoscopy Status: Chronic (8) DVT prophylaxis Narrative/Plan: Heparin subcu for DVT prophylaxis Status: Acute Plan: follow up renal function post contrast exposure await final plans from cardiology regarding re cath with stent insertion psych cleared patient for discharge home when medically stable possible discharge in AM
--- NOTE | 2016-12-09 12:04 | P.PN ---
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 The patient was admitted to the psych unit with depression and suicidal ideation. During his stay, he was experiencing chest discomfort, as a pressure across the chest, with some radiation to the neck as well as the jaw, and without any associated symptoms of shortness of breath, sweating, dizziness or lightheadedness or syncope. The EKG showed sinus rhythm with no significant ST or T-wave abnormalities. He underwent one set of cardiac enzyme came in to be unremarkable. The patient underwent myocardial perfusion imaging stress test and that showed ischemia in the inferolateral wall. He underwent a heart catheterization yesterday and that showed intermediate disease involving the left circumflex. Maximize medical treatment was recommended but the patient continues to have chest discomfort. Objective - Vital Signs Vital signs: Vital Signs Temp 97.2 F L 12/09/16 08:00 Pulse 73 12/09/16 10:35 Resp 18 12/09/16 10:35 BP 133/73 12/09/16 10:35 Pulse Ox 98 12/09/16 10:35 Intake & Output 12/08/16 12/09/16 12/09/16 18:59 06:59 18:59 Intake Total 50 1600 Balance 50 1600 Weight 90.2 kg Intake: IV 50 1600 Sodium Chloride 0.9% 1, 1600 000 ml @ 100 mls/hr IV . Q10H [facility] Rx#:[id number] Other: Voiding Method Toilet Toilet - Constitutional General appearance: Present: no acute distress - Respiratory Respiratory: bilateral: CTA - Cardiovascular Rhythm: regular Heart sounds: normal: S1, S2 - Labs CBC & Chem 7: 12/08/16 05:53 12/08/16 05:53 Labs: Abnormal Lab Results - Last 24 Hours (Table) 12/08/16 12/08/16 12/09/16 Range/Units 11:49 21:03 06:09 POC Glucose (mg/dL) 131 H 138 H 113 H (75-99) mg/dL 12/09/16 Range/Units 11:20 POC Glucose (mg/dL) 108 H (75-99) mg/dL Assessment and Plan Plan: This is a pleasant 56-year-old gentleman with a known CAD and prior stenting of the town as well as diabetes, hypertension, dyslipidemia presented to the hospital with chest discomfort. Currently the patient is pain-free. The cardiac enzyme came in to be unremarkable on we have only one set of enzyme. The EKG showed no acute abnormalities. He underwent myocardial perfusion imaging stress test and that showed ischemia in the inferolateral wall. We'll schedule the patient to undergo a heart catheterization.
[2016-12-09 12:28] LABS: CH 31.8; CHCM 34.1; HCT 38.5 % (39.0-53.0); HGB 12.5 gm/dL (13.0-17.5); MCH 30.6 pg (25.0-35.0); MCHC 32.5 g/dL (31.0-37.0); MCV 93.9 fL (80.0-100.0); RDW 13.5 % (11.5-15.5)
[2016-12-09 12:38] LABS: Anion Gap 12 mmol/L; Blood Urea Nitrogen 17 mg/dL (9-20); Calcium 9.4 mg/dL (8.4-10.2); Carbon Dioxide 22 mmol/L (22-30); Chloride 107 mmol/L (98-107); Glucose 103 mg/dL (74-99); Non-African American GFR(MDRD) >60 (>60 ml/min/1.73 sqM); Potassium 4.2 mmol/L (3.5-5.1); Sodium 141 mmol/L (137-145)
[2016-12-09] MEDS ORDERED: MIDAZOLAM 2 MG/2 ML VIAL ONE (13:06)
[2016-12-09] MEDS ORDERED: MIDAZOLAM 2 MG/2 ML VIAL IV ONE (13:15)
[2016-12-09] MEDS ORDERED: LIDOCAINE 2% INJ 20 MG/ML SQ ONE (13:16)
[2016-12-09] MEDS ORDERED: BIVALIRUDIN 250 MG in SODIUM CHLORIDE 0.9% 50 ML IV ONE (13:19)
[2016-12-09] MEDS ORDERED: BIVALIRUDIN BOLUS 250 MG/50 ML IV ONE (13:19)
[2016-12-09] MEDS ORDERED: HYDROmorphone 2 MG/ML 1 ML SYRINGE IV ONE (13:20)
[2016-12-09] MEDS ORDERED: HYDROmorphone 2 MG/ML 1 ML SYRINGE ONE (13:21)
[2016-12-09] MEDS ORDERED: IV FLUID CONTINUATION 1,000 ML IV ONE (13:29)
[2016-12-09] MEDS ORDERED: NITROGLYCERIN 1000MCG/10ML SYRINGE INTRACORON ONE (13:35)
[2016-12-09] MEDS ORDERED: CLOPIDOGREL 75 MG TAB ONE (13:37)
[2016-12-09] MEDS ORDERED: CLOPIDOGREL 75 MG TAB PO ONE (13:38)
[2016-12-09] MEDS ORDERED: IOHEXOL 350 MG/ML 125ML BOTTLE INJ ONE (13:43)
[2016-12-09] MEDS ORDERED: RX INFO: IV CONTRAST WAS GIVEN 1 EACH MISC MISCELLANE PRN (13:46)
[2016-12-09] MEDS ORDERED: ATROPINE SULFATE 0.1 MG/ML 10ML SYRINGE IV PRN (13:46)
[2016-12-09] MEDS ORDERED: ZOLPIDEM 5 MG TAB PO PRN (13:46)
[2016-12-09] MEDS ORDERED: MAG HYDROX/AL HYDROX/SIMETH 30 ML CUP PO PRN (13:46)
[2016-12-09] MEDS ORDERED: SODIUM CHLORIDE 0.9% 1,000 ML IV SCH (14:00)
[2016-12-09 16:46] LABS: Glucose,Whole Blood 116 mg/dL (75-99)
[2016-12-09] MEDS: ACETAMINOPHEN TAB 325 MG TAB PO PRN (19:22)
[2016-12-09] MEDS: METOPROLOL TARTRATE 5 MG/5 ML VIAL IVP SCH ×16 (19:32→19:47)
[2016-12-09 20:53] LABS: Glucose,Whole Blood 138 mg/dL (75-99)
[2016-12-09] MEDS: LORazepam 1 MG TAB PO PRN (22:47)
[2016-12-10 03:25] VITALS: BP 159/91; PULSE 80; RESP 14; TEMP 97.7
[2016-12-10] MEDS: ACETAMINOPHEN TAB 325 MG TAB PO PRN (04:16)
[2016-12-10 06:26] LABS: Glucose,Whole Blood 159 mg/dL (75-99)
[2016-12-10 06:37] LABS: Basophils % (A) 1 %; CH 32.1; CHCM 34.1; Eosinophils # (A) 0.1 k/uL (0-0.7); Eosinophils % (A) 3 %; HCT 37.5 % (39.0-53.0); HDW 2.66; HGB 12.3 gm/dL (13.0-17.5); Luc # (Auto) 0.08; Luc % (Auto) 2; Lymphocytes % (A) 26 %; MCHC 32.8 g/dL (31.0-37.0); MCV 94.8 fL (80.0-100.0); Mean Platelet Volume 8.4; Monocytes # (A) 0.3 k/uL (0-1.0); Monocytes % (A) 7 %; Neutrophils # (A) 2.4 k/uL (1.3-7.7); Neutrophils % (A) 61 %; RBC 3.96 m/uL (4.30-5.90); RDW 13.6 % (11.5-15.5); WBC (Perox) 4.04
[2016-12-10] MEDS: PANTOPRAZOLE 40 MG TABLET PO SCH (06:42)
[2016-12-10] MEDS: glipiZIDE 10 MG TAB PO SCH (06:42)
[2016-12-10 07:40] LABS: Anion Gap 10 mmol/L; Blood Urea Nitrogen 17 mg/dL (9-20); Calcium 9.3 mg/dL (8.4-10.2); Carbon Dioxide 24 mmol/L (22-30); Chloride 107 mmol/L (98-107); Glucose 179 mg/dL (74-99); Non-African American GFR(MDRD) >60 (>60 ml/min/1.73 sqM); Potassium 4.2 mmol/L (3.5-5.1); Sodium 141 mmol/L (137-145)
--- NOTE | 2016-12-10 07:45 | PTCA ---
PERCUTANEOUS CORONARY INTERVENTION DATE OF SERVICE: 12/09/2016 PERFORMING PHYSICIAN: ARSENIO VELA MD, CONSTRUCTION ANALYST PROCEDURE PERFORMED: Successful stenting of the proximal to mid-left circumflex using 3.25 x 18 mm Xience JOSE with a good angiographic results. INDICATION: This is a very pleasant 56-year-old gentleman who is known to have coronary artery disease who was admitted to the hospital with chest discomfort. He underwent myocardial perfusion imaging which showed inferolateral ischemia. He underwent heart catheterization which showed intermediate to severe disease involving the proximal to mid left circumflex. APPROACH: Right common femoral artery. COMPLICATION: None. LEVEL OF SEDATION: Moderate with a sedation length of 24 minutes. PROCEDURE DESCRIPTION: After obtaining an informed consent, the patient was brought to the Cardiac Protective Service Specialist. The right common femoral artery was cannulated using micropuncture technique. The micropuncture wire passed easily, then I placed a 6 Ukrainian sheath in the right common femoral artery. Subsequently, I did start anticoagulation using Angiomax. After that, I did engage the left main using JL3.5 guiding catheter. Subsequently, I wired the left circumflex using a Whisper wire. I did predilatation using 3.0 x 15 mm balloon and subsequently I deployed 3.25 x 18 mm Xience JOSE where the stent was positioned under fluoroscopic guidance and deployed under 14 atmospheres for 30 seconds. The following angiogram showed good angiographic results without perforation and without dissection with BENITA 3 flow. POSTPROCEDURE MANAGEMENT: 1. Dual antiplatelet therapy. 2. Risk factor modifications and follow up with the patient. MARVIN
[2016-12-10] MEDS ORDERED: AMINOPHYLLINE 500 MG/20 ML VIAL IV PRN (08:28)
[2016-12-10] MEDS ORDERED: REGADENOSON 0.4 MG/5 ML SYRINGE IV ONE (08:28)
[2016-12-10] MEDS ORDERED: LISINOPRIL 10 MG TAB PO SCH (09:00)
--- NOTE | 2016-12-10 11:05 | P.DS ---
Providers Date of admission: 12/05/16 23:33 Expected date of discharge: 12/10/16 Attending physician: Ayaan Robertson MD Consults: 12/06/16 01:31 Consult Physician Routine Consulting Provider: Rose Francois Consult Reason/Comments: Mental health transfer not cleared, depression/ suicidal ideation on admit Do you want consulting provider notified?: Yes, Notify in am 12/06/16 07:18 Consult Physician Routine Consulting Provider: Andreas Herrera Consult Reason/Comments: hypertension Do you want consulting provider notified?: Yes, Notify in am 12/09/16 13:46 Consult Physician Routine Consulting Provider: [facility] Consult Reason/Comments: Post Interventional patient Do you want consulting provider notified?: Already Contacted Primary care physician: Jenna Cuellar - [place] Diagnosis(es) (1) Accelerated hypertension Status: Resolved (2) Unstable angina Status: Resolved (3) Depression Status: Chronic (4) Suicidal ideation Status: Resolved (5) Diabetes mellitus type 2 in nonobese Status: Chronic (6) Hyperlipidemia Status: Chronic (7) Anemia Status: Chronic (8) DVT prophylaxis Status: Acute (9) CAD (coronary artery disease) Status: Chronic Hospital Course: 56-year-old male with past medical history significant for coronary artery disease status post stenting patient sees a replenisher at [place] who has performed a stress test in August 2016 and was told to be negative, then he had cardiac catheterization done in October 2016 which showed no significant coronary artery disease and recommendations were to continue on medical therapy. However while patient was admitted in the psych [facility] for depression in acute suicidal ideation he complained of typical chest pain that was induced with activity and resolved with rest and sublingual nitro upon which she was transferred to the medical floor for further monitoring and management cardiology evaluated the patient and performed a stress test which showed 2 possible evidence of reversible ischemia and cardiac catheterization was performed showed intermediate disease of proximal left circumflex artery. Initially cardiology recommended maximizing medical management however patient chest pain persisted and upon which cardiology performed another left heart catheterization and deployed a drug-eluting stent and to that artery. Chest pain was resolved and patient was cleared for discharge. Patient also noticed to have accelerated hypertension for which his blood pressure medications were adjusted and lisinopril was added to his list of medication and dose was adjusted accordingly. Patient was reevaluated by psychiatry while on the medical floor and was cleared for discharge home. Patient was seen and examined today reports no further chest pain or shortness of breath. Patient was ambulating freely with no limitations. Renal function was stable post left heart cath. Blood sugar overall was stable and controlled. Patient to continue his current cardiac medications on Plavix, aspirin, statin, Imdur, metoprolol, lisinopril. Constitutional: vital signs stable, Not in acute distress, pleasant, conversant Lungs: Clear to auscultation bilaterally, clear to percussion, normal respiratory effort no use of accessory muscles Cardiovascular: Regular rate and rhythm, no murmurs, no gallops, no rubs, no peripheral edema Extremities: Right inguinal femoral artery access site was unremarkable for any bruit swelling or bleeding. No digital cyanosis or clubbing, peripheral pulses palpable and equal over bilateral radial arteries and dorsalis pedis arteries, no calf muscle tenderness Psych: Alert, oriented to place, person and time ekg monitor was reviewed showed normal sinus rhythm More than 35 minutes were spent in this patient discharge, more than 50% of the time was spent in counseling and coordination of care Pertinent Studies: Patient had left heart cath done and showed intermediate disease of left proximal circumflex artery and due to persistence of symptoms of chest pain cardiology inserted a drug-eluting stent. Patient Condition at Discharge: Good Plan - Discharge Summary New Discharge Prescriptions: New Atorvastatin [Lipitor] 40 mg PO HS #30 tab Clopidogrel [Plavix] 75 mg PO DAILY #30 tab Isosorbide Mononitrate ER [Imdur] 60 mg PO DAILY #30 tab Lisinopril [Zestril] 10 mg PO DAILY #30 tab Metoprolol Tartrate [Lopressor] 50 mg PO BID #60 tab Nitroglycerin Sl Tabs [Nitrostat] 0.4 mg SUBLINGUAL Q5M PRN #25 tab PRN Reason: Chest Pain Continue sitaGLIPtin [Januvia] 100 mg PO DAILY 30 Days metFORMIN HCL 1,000 mg PO BID Brexpiprazole [Rexulti] 1 mg PO DAILY LORazepam [Ativan] 1 mg PO Q8HR PRN PRN Reason: Anxiety QUEtiapine FUMARATE [Seroquel Xr] 300 mg PO HS glipiZIDE [Glucotrol] 10 mg PO AC-BRKFST Escitalopram [Lexapro] 20 mg PO DAILY Pioglitazone HCl [Actos] 30 mg PO DAILY DULoxetine HCL [Cymbalta] 30 mg PO DAILY ARIPiprazole [Abilify] 2 mg PO DAILY Linagliptin [Tradjenta] 5 mg PO DAILY Ziprasidone [Geodon] 20 mg IM BID cloNIDine HCL [Catapres] 0.2 mg PO ONCE Discontinued Clopidogrel Bisulfate [Plavix] 75 mg PO DAILY 30 Days diphenhydrAMINE [Benadryl] 50 mg PO DAILY PRN PRN Reason: Itching Metoprolol Tartrate [Lopressor] 25 mg PO BID Nitroglycerin Sl Tabs [Nitrostat] 0.4 mg SUBLINGUAL Q5M PRN PRN Reason: Chest Pain Isosorbide Mononitrate ER [Imdur] 60 mg PO DAILY Atorvastatin [Lipitor] 40 mg PO HS Ibuprofen [Motrin] 400 mg PO Q6HR No Action Acetaminophen [Tylenol 8 Hour] 650 mg PO Q4H PRN PRN Reason: Pain Haloperidol [Haldol] 5 mg PO Q6H PRN PRN Reason: Agitation Discharge Medication List sitaGLIPtin [Januvia] 100 mg PO DAILY 30 Days 08/17/16 [Rx] metFORMIN HCL 1,000 mg PO BID 09/09/16 [History] Acetaminophen [Tylenol 8 Hour] 650 mg PO Q4H PRN 11/19/16 [History] Brexpiprazole [Rexulti] 1 mg PO DAILY 11/19/16 [History] Haloperidol [Haldol] 5 mg PO Q6H PRN 11/19/16 [History] LORazepam [Ativan] 1 mg PO Q8HR PRN 11/19/16 [History] QUEtiapine FUMARATE [Seroquel Xr] 300 mg PO HS 11/19/16 [History] DULoxetine HCL [Cymbalta] 30 mg PO DAILY 12/03/16 [History] Escitalopram [Lexapro] 20 mg PO DAILY 12/03/16 [History] Pioglitazone HCl [Actos] 30 mg PO DAILY 12/03/16 [History] glipiZIDE [Glucotrol] 10 mg PO AC-BRKFST 12/03/16 [History] ARIPiprazole [Abilify] 2 mg PO DAILY 12/06/16 [History] Linagliptin [Tradjenta] 5 mg PO DAILY 12/06/16 [History] Ziprasidone [Geodon] 20 mg IM BID 12/06/16 [History] cloNIDine HCL [Catapres] 0.2 mg PO ONCE 12/06/16 [History] Atorvastatin [Lipitor] 40 mg PO HS #30 tab 12/10/16 [Rx] Clopidogrel [Plavix] 75 mg PO DAILY #30 tab 12/10/16 [Rx] Isosorbide Mononitrate ER [Imdur] 60 mg PO DAILY #30 tab 12/10/16 [Rx] Lisinopril [Zestril] 10 mg PO DAILY #30 tab 12/10/16 [Rx] Metoprolol Tartrate [Lopressor] 50 mg PO BID #60 tab 12/10/16 [Rx] Nitroglycerin Sl Tabs [Nitrostat] 0.4 mg SUBLINGUAL Q5M PRN #25 tab 12/10/16 [Rx ] Follow up Appointment(s)/Referral(s): Katty Figueroa [Other] - 12/22/16 12:30 pm (Intake with Sadia ) Patient Instructions/Handouts: Coronary Artery Disease (GEN), Coronary Intravascular Stent Placement (GEN) Care Plan Goals (MU): Follow up with your replenisher Dr. Rojas and hector Mcintosh. Discharge Disposition: HOME SELF-CARE
--- NOTE | 2016-12-10 12:13 | P.PN ---
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 During his stay, he was experiencing chest discomfort, as a pressure across the chest, with some radiation to the neck as well as the jaw, and without any associated symptoms of shortness of breath, sweating, dizziness or lightheadedness or syncope.The EKG showed sinus rhythm with no significant ST or T-wave abnormalities. He underwent one set of cardiac enzyme came in to be unremarkable.Currently the patient is pain free. Guillermina scan stress test revealed a small area of questionable reversibility. For this reason patient was advised to undergo cardiac catheterization. He did have a cardiac catheterization performed one month ago at [facility] that she did not reveal any significant obstructive coronary artery disease. IFR was also performed at that time which did not come back to be significant. But because of the abnormal stress test findings patient has been advised to undergo cardiac catheterization tomorrow. This will be performed tomorrow by Dr. Kaye. 12/10/2016 Patient seen and examined this morning, underwent angioplasty with stenting of the circumflex yesterday. Patient was quite anxious and agitated this morning, as an event had occurred with the patient in bed 1. He denies any chest discomfort breathing is been stable. Morning EKG did not show any changes from post-PCI. Hemodynamically stable. Patient will follow-up with his director of campus recreation Dr. Rojas as an outpatient. Objective - Vital Signs Vital signs: Vital Signs Temp 97.7 F 12/10/16 03:23 Pulse 80 12/10/16 03:23 Resp 14 12/10/16 03:23 BP 159/91 12/10/16 03:23 Pulse Ox 97 12/10/16 03:23 Intake & Output 12/09/16 12/10/16 12/10/16 18:59 06:59 18:59 Intake Total 1134 Output Total 200 Balance 934 Weight 90.3 kg Intake: IV 534 Sodium Chloride 0.9% 1, 400 000 ml @ 100 mls/hr IV . Q10H [facility] Rx#:[id number] Oral 600 Output: Urine 200 Other: Voiding Method Toilet # Voids 1 1 # Bowel Movements 0 - Exam PHYSICAL EXAMINATION: HEENT: Head is atraumatic, normocephalic. Pupils equal, round. Neck is supple. There is no elevated jugular venous pressure. HEART EXAMINATION: Heart S1, S2 normal. No murmur or gallop heard. CHEST EXAMINATION: Lungs are clear to auscultation and precussion. No chest wall tenderness is noted on palpation or with deep breathing. ABDOMEN: Soft, nontender. Bowel sounds are heard. No organomegaly noted. Right groin soft, no evidence of any hematoma. EXTREMITIES: 2+ peripheral pulses with no evidence of peripheral edema and no calf tenderness noted. NEUROLOGIC patient is awake, alert and oriented -3. . - Labs CBC & Chem 7: 12/10/16 05:57 12/10/16 05:57 Labs: Abnormal Lab Results - Last 24 Hours (Table) 12/09/16 12/09/16 12/09/16 Range/Units 11:57 12:03 16:44 RBC 4.10 L (4.30-5.90) m/uL Hgb 12.5 L (13.0-17.5) gm/dL Hct 38.5 L (39.0-53.0) % Plt Count (150-450) k/uL Glucose 103 H (74-99) mg/dL POC Glucose (mg/dL) 116 H (75-99) mg/dL 12/09/16 12/10/16 12/10/16 Range/Units 20:39 05:57 05:57 RBC 3.96 L (4.30-5.90) m/uL Hgb 12.3 L (13.0-17.5) gm/dL Hct 37.5 L (39.0-53.0) % Plt Count 136 L (150-450) k/uL Glucose 179 H (74-99) mg/dL POC Glucose (mg/dL) 138 H (75-99) mg/dL 12/10/16 Range/Units 06:21 RBC (4.30-5.90) m/uL Hgb (13.0-17.5) gm/dL Hct (39.0-53.0) % Plt Count (150-450) k/uL Glucose (74-99) mg/dL POC Glucose (mg/dL) 159 H (75-99) mg/dL Assessment and Plan (1) Chest pain Status: Acute (2) Positive cardiac stress test Status: Acute (3) CAD (coronary artery disease) Status: Chronic (4) Diabetes Status: Acute (5) HTN (hypertension) Status: Acute (6) Hyperlipemia Status: Acute (7) Presence of stent in left circumflex coronary artery Status: Acute Plan: Patient may be able to be discharged home today from cardiology's perspective. He will follow-up with Dr. Rojas his director of campus recreation as an outpatient. Patient has been provided prescriptions for all of his medications. DNP note has been reviewed, I agree with a documented findings and plan of care. Patient was seen and examined.
[2016-12-10] MEDS ORDERED: ATORVASTATIN 40 MG TAB PO SCH (21:00)
== END 2016-12-10 10:05 | disposition home or self-care (01) | DRG 287 ==
LOC: 6SEL 23:33
PROVIDERS: ADMIT Internal Medicine; ATTEND Internal Medicine
PROC: B2111ZZ Fluoroscopy of Multiple Coronary Arteries using Low Osmolar Contrast (ICD-10-PCS; 2016-12-08)
PROC: 4A023N7 Measurement of Cardiac Sampling and Pressure, Left Heart, Percutaneous Approach (ICD-10-PCS; principal; 2016-12-08 10:00)
DX: I25.110 Atherosclerotic heart disease of native coronary artery with unstable angina pectoris (principal); R45.851 Suicidal ideations; F33.9 Major depressive disorder, recurrent, unspecified; I10 Essential (primary) hypertension; E11.9 Type 2 diabetes mellitus without complications; D64.9 Anemia, unspecified; E78.5 Hyperlipidemia, unspecified; F41.9 Anxiety disorder, unspecified; F12.90 Cannabis use, unspecified, uncomplicated; F90.9 Attention-deficit hyperactivity disorder, unspecified type; G89.29 Other chronic pain; F10.10 Alcohol abuse, uncomplicated; Z79.84 Long term (current) use of oral hypoglycemic drugs; Z79.899 Other long term (current) drug therapy; Z87.891 Personal history of nicotine dependence; Z95.5 Presence of coronary angioplasty implant and graft; Z88.8 Allergy status to other drugs, medicaments and biological substances; Z82.49 Family history of ischemic heart disease and other diseases of the circulatory system
CPT/HCPCS: 78452; 80048; 82550; 82553; 83036; 84484; 85025; 85027; 93017; 93458; 94760

== ENCOUNTER 2017-11-23 14:16 | Inpatient (IN) | payer MEDICARE, OTHER ==
[2017-11-23] MEDS ORDERED: ASPIRIN 81 MG PO STA (15:14)
[2017-11-23] MEDS ORDERED: NALOXONE 0.4 MG/ML 1 ML VIAL IV PRN (15:29)
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
[2017-11-23 15:41] LABS: Glucose,Whole Blood 93 mg/dL (75-99)
[2017-11-23] MEDS ORDERED: NITROGLYCERIN SL TABS 0.4 MG TAB SUBLINGUAL PRN (17:50)
[2017-11-23 18:08] VITALS: BMI 31.7
[2017-11-23 18:13] LABS: Glucose,Whole Blood 70 mg/dL (75-99)
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
[2017-11-23 20:53] LABS: Glucose,Whole Blood 177 mg/dL (75-99)
[2017-11-23] MEDS: METOPROLOL TARTRATE 25 MG TAB PO SCH (20:53)
[2017-11-23] MEDS: ATORVASTATIN 40 MG TAB PO SCH (20:53)
[2017-11-23] MEDS: INSULIN ASPART 100 UNIT/ML 1 ML 10 ML VIAL SQ SCH (21:55)
[2017-11-23] MEDS: QUEtiapine 100 MG TAB PO SCH (21:55)
[2017-11-23 23:10] VITALS: RESP 18
[2017-11-24 06:05] LABS: Glucose,Whole Blood 114 mg/dL (75-99)
[2017-11-24] MEDS: INSULIN ASPART 100 UNIT/ML 1 ML 10 ML VIAL SQ SCH ×4 (06:20→20:47)
[2017-11-24] MEDS: LEVOTHYROXINE 50 MCG TAB PO SCH (06:33)
[2017-11-24 06:49] LABS: Cholesterol 154 mg/dL (<200); HDL Cholesterol 33 mg/dL (40-60); LDL Cholesterol,Calculated 78 mg/dL (0-99); Triglycerides 216 mg/dL (<150)
[2017-11-24] MEDS ORDERED: INSULIN ASPART 100 UNIT/ML 1 ML 10 ML VIAL SQ SCH (07:30)
[2017-11-24] MEDS: CLOPIDOGREL 75 MG TAB PO SCH (08:00)
[2017-11-24] MEDS: METOPROLOL TARTRATE 25 MG TAB PO SCH ×2 (08:00→20:46)
[2017-11-24] MEDS: ISOSORBIDE MONONITRATE ER 60 MG TAB.ER.24H PO SCH (08:00)
[2017-11-24] MEDS: LISINOPRIL 10 MG TAB PO SCH (08:00)
--- NOTE | 2017-11-24 09:57 | CONS ---
CONSULTATION DATE OF CONSULTATION: 11/23/2017 CHIEF COMPLAINT: Stroke. HISTORY OF PRESENT ILLNESS: Mr. Green is a pleasant 57-year-old male who is being evaluated today on 11/23/2017 by the neurology service per the request of Dr. Sal Lo for a stroke. The patient states that he developed a sudden onset of right-sided weakness early this morning at 3 a.m. He did not seek immediate medical attention and decided to sleep it off. When he woke up around 9:30 a.m., the weakness was still there and he was unable to ambulate. He also had some numbness and tingling on the right side. He was brought in initially to [facility] Emergency Room and according to the chart, a CT scan of the brain was done, which showed no acute findings. He was then transferred to [facility] Emergency Room for further workup. The patient was not a tPA candidate as he presented to the hospital out of the tPA window. The patient denies any previous history of strokes, but he is on Plavix 75 mg daily due to coronary artery disease. At the time of my evaluation, he is lying in his bed and appears to be in no acute distress. He reports improvement in his symptoms, but denies resolution. PAST MEDICAL HISTORY: Coronary artery disease, diabetes, dyslipidemia, hypertension, chronic low back pain. PAST SURGICAL HISTORY: Coronary artery stent placement, hernia repair, varicose vein stripping. SOCIAL HISTORY: The patient is a former smoker. He occasionally drinks alcohol. He occasionally smokes marijuana. FAMILY HISTORY: Positive for Alzheimer's dementia and heart disease. HOME MEDICATIONS: Reviewed in the chart. ALLERGIES: DILANTIN. REVIEW OF SYSTEMS: CONSTITUTIONAL: Negative. EYES: Negative. ENT: Negative. CARDIOVASCULAR: As mentioned above. RESPIRATORY: Negative. NEUROLOGICAL: As mentioned above. GASTROINTESTINAL: Negative. GENITOURINARY: Negative. PSYCHIATRIC: Positive for history of anxiety disorder, depression, and attention deficit disorder. MUSCULOSKELETAL: Positive for chronic low back pain and occasional joint pain. ENDOCRINE: Positive for diabetes. DERMATOLOGICAL: Negative. PHYSICAL EXAM: Vital signs show a temperature of 97.4, pulse 78, respiration 18, blood pressure 153/78. GENERAL APPEARANCE: The patient is a well-developed male, who appears to be in no acute distress. HEENT: Normocephalic, atraumatic. Right facial drooping is seen. Extraocular muscles are intact. NECK: Supple with no masses felt. CARDIOVASCULAR: Regular rate and rhythm. ABDOMEN: Nontender, nondistended. Extremities showed no edema or clubbing. NEUROLOGICAL EXAM: The patient is awake and oriented x3. Speech and language are normal. Strength is 4+ out of 5 in the right upper and lower extremity and 5/5 on the left side. A pronator drift is seen slightly on the right side. Crrmqs-[id number] testing showed dysmetria on the right compared to the left. Dysdiadochokinesia is seen on the right side. Sensory exam showed normal light touch sensation in all 4 extremities. Cranial nerve testing showed right facial weakness. No seizure-like activity is seen. IMPRESSION: 1. Acute ischemic stroke, likely left middle cerebral artery distribution. 2. Right-sided weakness. 3. Numbness and tingling. 4. Hypertension. 5. Dyslipidemia. RECOMMENDATION: The patient does appear to have suffered an acute ischemic stroke. He continues to have right hemiparesis although the intensity has improved. The patient is already on Plavix 75 mg daily and I will keep him on this regimen. I will order an MRI of the brain, EEG, carotid Doppler, fasting lipid panel and serum homocysteine level. I will consult physical therapy and occupational therapy to evaluate and treat. Continue neuro checks. Continue the rest of your current workup and management. I will continue to follow with you. Further recommendations to follow. Thank you for allowing me to participate in the care of your patient. If you have any questions, please feel free to contact me. ZACKARY / HANGN: [id number] /
--- NOTE | 2017-11-24 11:06 | ECHOF ---
Referral Reason:cva MEASUREMENTS -------- HEIGHT: 182.9 cm WEIGHT: 101.2 kg BP: 132/67 IVSd: 1.2 cm (0.6 - 1.1) LVIDd: 4.8 cm (3.9 - 5.3) LVPWd: 1.2 cm (0.6 - 1.1) IVSs: 1.7 cm LVIDs: 2.0 cm LVPWs: 1.7 cm LAESV Index (A-L): 23.21 ml/m Ao Diam: 3.0 cm (2.0 - 3.7) AV Cusp: 2.1 cm (1.5 - 2.6) LA Diam: 3.7 cm (2.7 - 3.8) MV EXCURSION: 12.495 mm (> 18.000) MV EF SLOPE: 51 mm/s (70 - 150) EPSS: 0.4 cm MV E Zohaib: 0.56 m/s MV DecT: 256 ms MV A Zohaib: 0.84 m/s MV E/A Ratio: 0.67 RAP: 5.00 mmHg RVSP: 19.00 mmHg FINDINGS -------- Sinus rhythm. This was a technically good study. The left ventricular size is normal. There is mild concentric left ventricular hypertrophy. Overa ll left ventricular systolic function is normal with, an EF between 55 - 60 %. The right ventricle is normal in size and function. The left atrium is normal in size. The right atrium is normal in size. The aortic valve is trileaflet, and appears structurally normal. No aortic stenosis or regurgitation. There is trace mitral regurgitation. Trace tricuspid regurgitation present. The right ventricular systolic pressure, as measured by Dopp ler, is 19.00mmHg. Pulmonic valve appears structurally normal. The aortic root size is normal. Normal inferior vena cava with normal inspiratory collapse consistent with estimated right atrial pre ssure of 5 mmHg. The pericardium is normal. CONCLUSIONS -------- 1. Sinus rhythm. 2. This was a technically good study. 3. The left ventricular size is normal. 4. There is mild concentric left ventricular hypertrophy. 5. Overall left ventricular systolic function is normal with, an EF between 55 - 60 %. 6. The right ventricle is normal in size and function. 7. The left atrium is normal in size. 8. The right atrium is normal in size. 9. The aortic valve is trileaflet, and appears structurally normal. No aortic stenosis or regurgitati on. 10. There is trace mitral regurgitation. 11. Trace tricuspid regurgitation present. 12. The right ventricular systolic pressure, as measured by Doppler, is 19.00mmHg. 13. Pulmonic valve appears structurally normal. 14. The aortic root size is normal. 15. Normal inferior vena cava with normal inspiratory collapse consistent with estimated right atrial pressure of 5 mmHg. 16. The pericardium is normal. INTERVENTIONIST: Virginia Coulter RDCS
[2017-11-24 11:45] LABS: Glucose,Whole Blood 229 mg/dL (75-99)
[2017-11-24 13:02] LABS: Hemoglobin A1C 6.8 % (4.0-6.0)
--- NOTE | 2017-11-24 14:17 | US ---
EXAMINATION TYPE: US carotid duplex BILAT DATE OF EXAM: 11/24/2017 COMPARISON: NONE CLINICAL HISTORY: cva. Stroke EXAM MEASUREMENTS: RIGHT: Peak Systolic Velocity (PSV) cm/sec ----- Right CCA: 68.8 ----- Right ICA: 76.3 ----- Right ECA: 108.4 ICA/CCA ratio: 1.1 RIGHT: End Diastole cm/sec ----- Right CCA: 14.9 ----- Right ICA: 25.9 ----- Right ECA: 0.0 LEFT: Peak Systolic Velocity (PSV) cm/sec ----- Left CCA: 92.5 ----- Left ICA: 66.3 ----- Left ECA: 85.6 ICA/CCA ratio: 0.7 LEFT: End Diastole cm/sec ----- Left CCA: 15.8 ----- Left ICA: 23.4 ----- Left ECA: 0.0 VERTEBRALS (direction of flow): Right Vertebral: Antegrade Left Vertebral: Antegrade Rhythm: Normal Grayscale images show minimal eccentric plaque at right carotid bulb without significant plaque at le ft carotid bulb. IMPRESSION: No hemodynamically significant stenosis is seen in either internal carotid artery. Criteria for Assigning % of Stenosis / Diameter reduction (Estimation based on the indirect measurements of the internal carotid artery velocities (ICA PSV). 1. Normal (no stenosis)=ICA PSV < 125 cm/s: ratio < 2.0: ICA EDV<40 cm/s. 2. Less than 50% stenosis=ICA PSV < 125 cm/s: ratio < 2.0: ICA EDV<40 cm/s. 3. 50 to 69% stenosis=ICA PSV of 125 to 230 cm/s: ration 2.0 ? 4.0: ICA EDV 40-100 cm/s. 4. Greater than 70% stenosis to near occlusion= ICA PSV > 230 cm/s: ratio > 4.0: ICA EDV > 100 cm/s. 5. Near occlusion= ICA PSV velocities may be low or undetectable: variable ratio and ICA EDV. 6. Total occlusion=unable to detect flow.
--- NOTE | 2017-11-24 14:32 | MR ---
EXAMINATION TYPE: MR brain wo con DATE OF EXAM: 11/24/2017 COMPARISON: Outside CT from yesterday. HISTORY: CVA per order. TECHNIQUE: Multiplanar, multisequence imaging of the brain and brainstem is performed without IV cont rast. FINDINGS: Diffusion weighted images demonstrate vague areas of increased signal on diffusion weighted images wi th diminished signal on ADC mapping that show T2 hyperintensity involving the anterolateral aspect of the left thalamus seen on image 128 and 136 series 305 suspicious for an area of evolving acute infa rct. Curvilinear Area of involvement measures roughly 15 x 4 mm. There is no worrisome extra axial fluid collection. There is persistent ventricular and sulcal promin ence consistent with diffuse cerebral atrophy. There are scattered foci T2 hyperintensity seen throug hout the deep and periventricular white matter. Involvement in the left vineet is present axial image 1 0. Findings are presumed on basis of product of chronic small vessel ischemic change. Midline structures demonstrate normal morphology. The craniocervical junction appears within normal limits. Normal vascular flow voids are present. Small caliber left maxillary sinus with air-fluid lev el is redemonstrated. Mild mucosal thickening ethmoid sinuses bilaterally remains present. The globes are intact bilaterally. IMPRESSION: 1. Acute infarct in the deep posterior left frontal region near junction of posterior left basal gang karen and anterolateral left thalamus. 2. Background mild diffuse cerebral atrophy and mild to moderate chronic small vessel ischemic change . 3. Possible acute left maxillary sinus disease redemonstrated.
--- NOTE | 2017-11-24 15:15 | EEG ---
ELECTROENCEPHALOGRAM REPORT DATE OF SERVICE: 11/24/2017 REASON FOR TESTING: Stroke. DESCRIPTION OF THE PROCEDURE: This EEG was performed using a 21 channel digital electroencephalograph, following international 10-20 system. DESCRIPTION OF THE RECORDING: From the beginning of the tracing, and with patient's eyes closed, the background rhythm was mostly consisting of 8 Hz alpha frequency in the posterior occipital leads. No obvious asymmetry is seen. Photic stimulation was performed with no driving response seen. No pathological waves were elicited. Hyperventilation was not performed. Occasional movement artifacts are seen. The patient remains awake throughout the tracing. No epileptiform discharges were seen. His EKG lead showed a regular rate and rhythm. INTERPRETATION: This awake EEG can be considered within normal limits. There is no asymmetry seen. No epileptiform discharges were noticed. The absence of epileptiform discharges does not rule out the diagnosis of epilepsy; therefore clinical correlation is recommended. ZACKARY / SAADIA: [id number] /
[2017-11-24 16:32] LABS: Glucose,Whole Blood 183 mg/dL (75-99)
--- NOTE | 2017-11-24 18:06 | PN ---
PROGRESS NOTE SUBJECTIVE: This is a 57-year-old white male with a CVA. His right arm and right leg strength is slowly improving. He still is able to swallow. States he is a little bit stronger than yesterday. CARDIOVASCULAR: S1, S2. LUNGS: Clear. GI: Soft. MUSCULOSKELETAL: Strength 4/5 in right arm and right leg. ASSESSMENT: 1. Acute cerebrovascular accident, left middle cerebral artery. 2. Right-sided weakness. PLAN: Check echo, carotid ultrasound. Cardiology and neurology consults are pending. MMODL / IJN: [id number] /
[2017-11-24 20:45] LABS: Glucose,Whole Blood 210 mg/dL (75-99)
[2017-11-24] MEDS: QUEtiapine 100 MG TAB PO SCH (20:46)
[2017-11-24] MEDS: ATORVASTATIN 40 MG TAB PO SCH (20:46)
[2017-11-25 05:52] LABS: Glucose,Whole Blood 177 mg/dL (75-99)
[2017-11-25] MEDS: LEVOTHYROXINE 50 MCG TAB PO SCH (06:07)
[2017-11-25] MEDS: INSULIN ASPART 100 UNIT/ML 1 ML 10 ML VIAL SQ SCH ×4 (06:07→20:55)
[2017-11-25] MEDS: METOPROLOL TARTRATE 25 MG TAB PO SCH ×2 (09:57→20:55)
[2017-11-25] MEDS: LISINOPRIL 10 MG TAB PO SCH (09:57)
[2017-11-25] MEDS: CLOPIDOGREL 75 MG TAB PO SCH (09:57)
[2017-11-25] MEDS: ISOSORBIDE MONONITRATE ER 60 MG TAB.ER.24H PO SCH (09:57)
[2017-11-25 11:36] LABS: Glucose,Whole Blood 249 mg/dL (75-99)
[2017-11-25 12:54] LABS: Glucose,Whole Blood 274 mg/dL (75-99)
--- NOTE | 2017-11-25 13:31 | CT ---
EXAMINATION TYPE: CODE STROKE: CT brain wo contrast DATE OF EXAM: 11/25/2017 COMPARISON: 11/23/2017 HISTORY: 57-year-old male right sided weakness with history of prior stroke TECHNIQUE: Examination was done in axial plane without intravenous contrast. Coronal and sagittal r econstructions performed. CT DLP: 1223.9 mGycm Automated exposure control for dose reduction was used. FINDINGS: There is no evidence of acute intracranial hemorrhage, acute ischemic changes, mass, mass-effect, or extra-axial fluid collection. There is no effacement of cerebral sulci or basal subarachnoid cister ns. There is no hydrocephalus. There is no midline shift. Boone-white matter distinction is preserv ed. There is new elongated hypodensity in the region of the left basal ganglia possibly along the posteri or limb internal capsule. Mild mucosal thickening left maxillary sinus and anterior left ethmoid air cells. Mastoid air cells w ell pneumatized. Flow and orbits are intact. IMPRESSION: New elongated hypodensity left basal ganglia seems to be along the posterior limb internal capsule. A cute to subacute infarct is suspected. No acute intracranial hemorrhage or midline shift.
--- NOTE | 2017-11-25 13:50 | CT ---
EXAMINATION TYPE: CODE STROKE: CTA head neck DATE OF EXAM: 11/25/2017 COMPARISON: CT head same day HISTORY: 57-year-old male right-sided weakness TECHNIQUE: Contiguous axial scanning of the head and neck performed with IV Contrast, patient injecte d with 65 mL of Isovue 370. Coronal/sagittal reconstructions performed. 3-D reconstructions generated on a dedicated independent workstation. CT DLP: 1722 mGycm Automated exposure control for dose reduction was used. FINDINGS: Head: The vertebral arteries are patent. There is a slightly low takeoff of the left PICA from the V3 and V 4 junction. The basilar artery is patent. Persistent origin right posterior cerebral artery wit h hypoplastic P1 segment. Mild atherosclerotic calcifications within the right artery siphon. Hypoplastic A1 segment left anter ior cerebral artery. The internal carotid arteries are patent. Anterior circulation grossly patent. N o aneurysmal changes seen. NECK: Aorta normal caliber with mild atherosclerotic arch calcifications. Patent great vessel origins. Excessive shoulder artifacts limiting assessment of the vertebral artery origins. The vertebral arter ies are otherwise codominant and patent throughout their course. The right common and internal carotid arteries are patent. Some limitations due to beam hardening art ifact from dental amalgam. The left common carotid artery is patent. Mild atherosclerotic calcification at the carotid bifurcati on. The left internal carotid artery is patent. IMPRESSION: 1. HEAD: SOME VARIANT ANATOMY OUTLINED ABOVE. NO LARGE VESSEL INTRACRANIAL ARTERIAL OCCLUSION, SIG NIFICANT STENOSIS, OR ANEURYSMAL CHANGE SEEN. 2. NECK: NO HEMODYNAMICALLY SIGNIFICANT STENOSIS OF EITHER INTERNAL CAROTID ARTERY. EXCESSIVE ARTIFAC TS PRECLUDES ADEQUATE ASSESSMENT OF THE BILATERAL VERTEBRAL ARTERY ORIGINS.
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
[2017-11-25 16:39] LABS: Glucose,Whole Blood 248 mg/dL (75-99)
--- NOTE | 2017-11-25 16:48 | XR ---
EXAMINATION TYPE: XR knee complete bilateral DATE OF EXAM: 11/25/2017 COMPARISON: NONE HISTORY: Knee pain TECHNIQUE: 6 views FINDINGS: I see no fracture nor dislocation. Joint spaces are fairly normal. There is no sign of knee joint effusion. IMPRESSION: Negative bilateral knee exam.
--- NOTE | 2017-11-25 17:06 | P.PN ---
Subjective Progress Note Date: 11/25/17 Patient is a pleasant 57-year-old male who is being followed by the neurology service for stroke. Patient developed sudden onset of right-sided weakness in the evening of 11/22/2017. He did not seek medical attention thinking this was due to new medication he was taking. Patient states he slept in the chair and when he woke up in the morning he still could not move his right side. Patient states he fell 4 times trying to get to his phone. He denies loss of consciousness. He states he called his physician who instructed him to call 911 and come to [facility] for further evaluation. Patient states EMS brought him to [facility] where he had CT of the brain done which showed no acute findings. He was then transferred to [facility]. Patient was no longer TPA candidate as he presented to the hospital out of the TPA window. Patient denies history of any review of strokes. He is on Plavix 75 mg daily in the home setting due to coronary artery disease. Time of my evaluation, he is lying in his bed and appears to be in no acute distress. Objective - Vital Signs Vital signs: Vital Signs Temp 97.4 F L 11/25/17 16:00 Pulse 75 11/25/17 16:00 Resp 18 11/25/17 16:00 BP 148/90 11/25/17 16:00 Pulse Ox 94 L 11/25/17 16:00 Intake & Output 11/24/17 11/25/17 11/25/17 18:59 06:59 18:59 Intake Total 472 480 318 Balance 472 480 318 Weight 98.1 kg Intake: Oral 472 480 318 Other: Voiding Method Urinal Urinal Urinal # Voids 1 2 2 - Exam PHYSICAL EXAM: GENERAL APPEARANCE: Patient is a well-developed, male who appears to be in no acute distress. HEENT: Normocephalic, atraumatic, no facial asymmetry is seen. Neck is supple with no masses felt. CARDIOVASCULAR: Regular rate and rhythm. ABDOMEN: Nontender, nondistended. EXTREMITIES: Show no edema or clubbing. NEUROLOGICAL EXAM: Patient is awake, alert, and oriented 3. Speech and language are normal. Strength is 4+/5 in the right upper and lower extremity and 5/5 on the left upper and lower extremity. Mild pronator drift is seen on the right. Sensory exam showed decreased sensation to light touch on the right upper and lower extremity. No facial asymmetry is seen on cranial nerve testing. No tremors or seizure-like activity noted. - Labs Labs: Abnormal Lab Results - Last 24 Hours (Table) 11/24/17 11/25/17 11/25/17 Range/Units 20:43 05:50 11:30 POC Glucose (mg/dL) 210 H 177 H 249 H (75-99) mg/dL 11/25/17 11/25/17 Range/Units 12:51 16:37 POC Glucose (mg/dL) 274 H 248 H (75-99) mg/dL Assessment and Plan Plan: Impression: 1. Acute ischemic stroke 2. Right-sided weakness 3. Right-sided numbness and tingling 4. Hypertension 5. Dyslipidemia Recommendation: It does appear the patient did suffer an acute ischemic stroke. MRI shows acute infarct of left frontal, left basal ganglia and left thalamic region. Patient continues to have right hemiparesis although this has somewhat improved. I recommend continuing Plavix 75 mg by mouth daily. EEG was done and is normal. Carotid Doppler showed no hemodynamically significant stenosis. I recommend a DEWAYNE be done to evaluate possible etiology. Cardiology consult. I recommend adjustment of blood pressure medications as his blood pressure has been elevated. Lipid panel showed elevated triglycerides of 216 and low HDL of 33. Continue statin therapy. Serum homocystine level was within normal limits. I recommend physical therapy to evaluate and treat. Continue neurological checks. Continue medical management. I will continue to follow with you. Further recommendations to follow. I performed an examination of the patient and discussed the management with the DIRECTOR OF ASSISTED LIVING. I have reviewed the DIRECTOR OF ASSISTED LIVING notes and agree with the findings and plan of care.
[2017-11-25 20:22] LABS: Glucose,Whole Blood 236 mg/dL (75-99)
[2017-11-25] MEDS: ATORVASTATIN 40 MG TAB PO SCH (20:55)
[2017-11-25] MEDS: QUEtiapine 100 MG TAB PO SCH (20:55)
--- NOTE | 2017-11-26 00:01 | PN ---
PROGRESS NOTE SUBJECTIVE: This is a white male with a stroke, left frontal part of his brain involving the cortex basal ganglia. He has right-sided weakness. He apparently was getting up and he fell to the ground going to the bathroom today. Physical therapy, maybe detention will be needed. Echo normal. Carotid arteries normal. EEG normal. Awaiting neurologic recommendations, cardiac recommendations. LUNGS: Clear. CARDIOVASCULAR: S1, S2. ASSESSMENT: 1. Left frontal stroke. 2. Hypertension. 3. Diabetes. 4. Coronary artery disease. Continue with current treatments, Plavix for blood thinner, tight control of his blood pressure and diabetes. MMODL / IJN: [id number] /
[2017-11-26 06:30] LABS: Glucose,Whole Blood 191 mg/dL (75-99)
[2017-11-26] MEDS: INSULIN ASPART 100 UNIT/ML 1 ML 10 ML VIAL SQ SCH ×2 (06:50→12:06)
[2017-11-26] MEDS: LEVOTHYROXINE 50 MCG TAB PO SCH (06:50)
[2017-11-26] MEDS: LISINOPRIL 10 MG TAB PO SCH (08:16)
[2017-11-26] MEDS: METOPROLOL TARTRATE 25 MG TAB PO SCH (08:17)
[2017-11-26] MEDS: ISOSORBIDE MONONITRATE ER 60 MG TAB.ER.24H PO SCH (08:17)
[2017-11-26] MEDS: CLOPIDOGREL 75 MG TAB PO SCH (08:17)
[2017-11-26 12:04] LABS: Glucose,Whole Blood 243 mg/dL (75-99)
[2017-11-26] MEDS: BENZOCAINE SPRAY 1 CAN MUCOUS MEM ONE ×2 (14:45→14:59)
[2017-11-26] MEDS ORDERED: SODIUM CHLORIDE 0.9% 500 ML IV ONE (14:47)
[2017-11-26] MEDS ORDERED: MIDAZOLAM 2 MG/2 ML VIAL IVP ONE ×2 (14:59→15:00)
[2017-11-26] MEDS ORDERED: fentaNYL (PF) 50 MCG/ML 2 ML AMP IV ONE (14:59)
[2017-11-26] MEDS ORDERED: SODIUM CHLORIDE 0.9% 1,000 ML IV SCH (15:15)
--- NOTE | 2017-11-26 16:17 | EST ---
EXERCISE STRESS INDICATION: Evaluation of stroke source. PROCEDURE: After explaining the procedure to the patient, its risks and complications, blood pressure, heart rate and oxygen saturation were monitored. The throat was sprayed with Cetacaine. He received 3 mg intravenous Versed, 50 mcg intravenous fentanyl. The probe was introduced into the esophagus without difficulty. Images were obtained. Following that, the probe was removed. There was no immediate complication. FINDINGS: Left atrial size is mildly dilated. Left atrial appendage is normal. Left ventricular size and systolic function is normal. The aortic valve, mitral valve and tricuspid valve are normal. Descending thoracic aorta appears to be normal. Contrast bubble study revealed no shunting across the interatrial septum with Valsalva maneuver. No pericardial effusion was noted. Doppler pulse wave images were obtained and revealed mild mitral and tricuspid regurgitation with trace aortic regurgitation. There was no shunting by color Doppler study. CONCLUSION: 1. Mildly dilated left atrium. Normal appearance of left atrial appendage. 2. Normal left ventricular size and systolic function. 3. Mild mitral, tricuspid and trace aortic regurgitation. 4. No evidence of shunting across the interatrial septum. MMODL / IJN: [id number] /
[2017-11-26 17:12] LABS: Glucose,Whole Blood 176 mg/dL (75-99)
--- NOTE | 2017-11-26 18:24 | P.PN ---
Subjective Progress Note Date: 11/26/17 Patient is a pleasant 57-year-old male who is being followed by the neurology service for stroke. Patient developed sudden onset of right-sided weakness in the evening of 11/22/2017. He did not seek medical attention thinking this was due to new medication he was taking. Patient states he slept in the chair and when he woke up in the morning he still could not move his right side. Patient states he fell 4 times trying to get to his phone. He denies loss of consciousness. He states he called his physician who instructed him to call 911 and come to [facility] for further evaluation. Patient states EMS brought him to [facility] where he had CT of the brain done which showed no acute findings. He was then transferred to [facility]. Patient was no longer TPA candidate as he presented to the hospital out of the TPA window. Patient denies history of any review of strokes. He is on Plavix 75 mg daily in the home setting due to coronary artery disease. Time of my evaluation, he is lying in his bed and appears to be in no acute distress. 11/26/2017 Patient is a pleasant 57-year-old male who is being followed by the neurology service for stroke. As you recall, MRI of the brain showed acute infarct in the deep posterior left frontal region near junction of posterior left basal ganglia and anterolateral left thalamus. CTA showed no hemodynamically significant stenosis of either internal carotid artery. EEG was within normal limits. DEWAYNE was done showing no evidence of shunting or thrombus. Physical therapy assessed the patient and found him to be independent. Blood pressure is under better control. At the time of my evaluation, patient's resting comfortably in bed and appears to be in no acute distress. Objective - Vital Signs Vital signs: Vital Signs Temp 97.5 F L 11/26/17 12:00 Pulse 69 11/26/17 16:00 Resp 18 11/26/17 16:00 BP 135/69 11/26/17 15:10 Pulse Ox 99 11/26/17 15:10 Intake & Output 11/25/17 11/26/17 11/26/17 18:59 06:59 18:59 Intake Total 558 820 Balance 558 820 Weight 98.4 kg Intake: IV 100 Oral 558 720 Other: Voiding Method Urinal Urinal Urinal # Voids 1 9 1 # Bowel Movements 1 - Exam PHYSICAL EXAM: GENERAL APPEARANCE: Patient is a well-developed, male who appears to be in no acute distress. HEENT: Normocephalic, atraumatic, no facial asymmetry is seen. Neck is supple with no masses felt. CARDIOVASCULAR: Regular rate and rhythm. ABDOMEN: Nontender, nondistended. EXTREMITIES: Show no edema or clubbing. NEUROLOGICAL EXAM: Patient is awake, alert, and oriented 3. Speech and language are normal. Strength is 5-/5 in the right upper and lower extremity and 5/5 on the left upper and lower extremity. Mild pronator drift is seen on the right. Sensory exam showed decreased sensation to light touch on the right upper and lower extremity. No facial asymmetry is seen on cranial nerve testing. No tremors or seizure-like activity noted. - Labs Labs: Abnormal Lab Results - Last 24 Hours (Table) 11/25/17 11/26/17 11/26/17 Range/Units 20:21 06:27 12:02 POC Glucose (mg/dL) 236 H 191 H 243 H (75-99) mg/dL 11/26/17 Range/Units 17:08 POC Glucose (mg/dL) 176 H (75-99) mg/dL Assessment and Plan Plan: Impression: 1. Acute ischemic stroke 2. Right-sided weakness 3. Right-sided numbness and tingling 4. Hypertension 5. Dyslipidemia Recommendation: It does appear the patient did suffer an acute ischemic stroke. MRI shows acute infarct of left frontal, left basal ganglia and left thalamic region. Patient continues to have right hemiparesis although this has improved. I recommend continuing Plavix 75 mg by mouth daily as well as statin therapy. Switching patient to Aggrenox would be a lateral move and much more expensive for the patient. Continuing Plavix, controlling cholesterol and blood pressure will help to prevent any further events. EEG was done and is normal. Carotid Doppler showed no hemodynamically significant stenosis. DEWAYNE was negative for any shunting or thrombus. Serum homocystine level was within normal limits. Continue neurological checks. Continue medical management. Patient is stable for discharge from neurological standpoint. I will continue to follow with you on an as-needed basis. Feel free to call with any questions or concerns. I performed an examination of the patient and discussed the management with the TOP LIFT NAILER. I have reviewed the TOP LIFT NAILER notes and agree with the findings and plan of care.
[2017-11-26 19:48] VITALS: BP 139/77; PULSE 73; TEMP 98.8
[2017-11-26] MEDS ORDERED: ATORVASTATIN 80 MG TAB PO SCH (21:00)
[2017-11-26] MEDS ORDERED: INSULIN DETEMIR 100 UNIT/ML 10 ML VIAL SQ SCH (21:00)
== END 2017-11-26 19:58 | disposition left against medical advice (07) | DRG 65 ==
LOC: EC 14:16 → 6SEL 15:29
PROVIDERS: ADMIT Family Medicine; ATTEND Family Medicine
PROC: B245ZZ4 Ultrasonography of Left Heart, Transesophageal (ICD-10-PCS; principal; 2017-11-26 15:00)
DX: I63.8 Other cerebral infarction (principal); G81.94 Hemiplegia, unspecified affecting left nondominant side; E11.9 Type 2 diabetes mellitus without complications; E78.5 Hyperlipidemia, unspecified; F90.9 Attention-deficit hyperactivity disorder, unspecified type; G40.909 Epilepsy, unspecified, not intractable, without status epilepticus; I10 Essential (primary) hypertension; I25.10 Atherosclerotic heart disease of native coronary artery without angina pectoris; G47.00 Insomnia, unspecified; G89.29 Other chronic pain; M54.5 Low back pain; F32.9 Major depressive disorder, single episode, unspecified; F41.9 Anxiety disorder, unspecified; Z79.02 Long term (current) use of antithrombotics/antiplatelets; Z79.84 Long term (current) use of oral hypoglycemic drugs; Z79.899 Other long term (current) drug therapy; Z79.890 Hormone replacement therapy; Z88.8 Allergy status to other drugs, medicaments and biological substances; Z87.820 Personal history of traumatic brain injury; Z95.5 Presence of coronary angioplasty implant and graft; Z87.891 Personal history of nicotine dependence; Z82.49 Family history of ischemic heart disease and other diseases of the circulatory system; Z82.0 Family history of epilepsy and other diseases of the nervous system; Z81.8 Family history of other mental and behavioral disorders; W19.XXXA Unspecified fall, initial encounter
CPT/HCPCS: 36415; 70450; 70496; 70498; 70551; 80061; 83036; 83090; 93005; 93306; 93312; 93320; 93325; 93880; 95816; 99285